=== PATIENT | male | born 1935 | race Caucasian/White ===

== ENCOUNTER 2018-04-28 03:38 | Observation (INO) | payer MEDICARE, OTHER ==
[~2018-04-28] VITALS: Ht 177.8 cm; Wt 83.6 kg
[~2018-04-28 03:38] MED LIST: ASPIRIN EC325 M1 PO; COZAAR50 MG PO; DICLOFENAC SODI50 MG PO; NATURAL VEGETA283 G1 PO; ZOCOR40 MG PO
[2018-04-28 04:00] VITALS: BP 134/62
[2018-04-28 05:01] LABS: TROPONIN-I 0.022 ng/mL (0.000-0.060)
[2018-04-28 06:00] VITALS: BP 123/90; BMI 26.4
[2018-04-28 08:31] VITALS: Ht 177.8 cm; Wt 83.6 kg
[2018-04-28 09:03] VITALS: BP 139/70
[2018-04-28 10:58] LABS: CKMB 2.1 U/L (0.0-3.6); CREATINE KINASE 82 UL (21-232)
[2018-04-28 10:59] LABS: TROPONIN-I < 0.017 ng/mL (0.000-0.060)
[2018-04-28 12:11] VITALS: BP 104/72
[2018-04-28 14:47] LABS: CKMB 1.9 U/L (0.0-3.6); CREATINE KINASE 69 UL (21-232); TROPONIN-I < 0.017 ng/mL (0.000-0.060)
== END 2018-04-28 17:37 | disposition home or self-care (01) ==
LOC: D.ER 03:38 → OBSVTIME 04:15 → D.M2 04:15
PROVIDERS: Emergency Medicine; Internal Medicine Cardiovascular Disease
DX: R00.1 Bradycardia, unspecified (principal); I25.10 Atherosclerotic heart disease of native coronary artery without angina pectoris; Z95.1 Presence of aortocoronary bypass graft; I10 Essential (primary) hypertension; E78.5 Hyperlipidemia, unspecified; Z72.0 Tobacco use; Z86.73 Personal history of transient ischemic attack (TIA), and cerebral infarction without residual deficits; G25.81 Restless legs syndrome; K21.9 Gastro-esophageal reflux disease without esophagitis

== ENCOUNTER 2018-09-24 11:48 | Inpatient (IN) | payer MEDICARE, OTHER ==
[~2018-09-24] VITALS: Ht 177.8 cm; Wt 86.8 kg
--- NOTE | ~2018-09-24 | HEMODYNAMI ---
PATIENT:CAROLINA CANELA MEDICAL RECORD: [id number] : 35 LOCATION:[address] [facility] [id number] ADMISSION DATE: 09/25/18 Generatedon:09/26/201814:26 Patient name: CAROLINA CANELA Patient #: [id number] SSN: : 1935 Date of study: 09/26/2018 Page: Of Hemodynamic Procedure Report Patient Data Patient Demographics Procedure consent was obtained First Name: CAROLINA Gender: Male Last Name: ROLA : 1935 [facility] Initial: N Age: 83 year(s) Patient #: [id number] Race: Unknown Additional ID: [id number] Contact details Address: [address] State: [place] City: [place] Zip code: [address] Past Medical History Allergies: No known allergies Admission Admission Data Admission Date: 09/25/2018 Admission Time: 13:40 Room #: D.2124 Lab Results Lab Result Date: 09/26/2018 Lab Result Time: 0:00 Biochemistry Name Units Result Min Max BUN mg/dl 17 --(---*)-- 7 18 Creatinine mg/dl 1 --(--*-)-- 0.6 1.3 CBC Name Units Result Min Max Hemoglobin g/dl 13.1 -*(----)-- 13.5 17.5 Procedure Procedure Types Cath Procedure Diagnostic Procedure PPM/ICD PPM Dual Implant Sedation Charges Moderate Sedation up to 30 minutes Procedure Description Procedure Date Procedure Date: 09/26/2018 Procedure Start Time: 13:49 Procedure End Time: 14:14 Procedure Staff Name Function Meño Garay MD Performing Physician Wilberto Almendarez MD Assisting physician Paul Suero RN Sports Centre Manager Crystal Jones RT Monitor Darin Mayes RN Nurse Sergei Barnes RT Scrub Procedure Data Cath Procedure Estimated blood loss: 10 ml Procedure Complications No complications Procedure Medications Medication Administration Route Dosage 0.9% NaCl I.V. 100 ml/hr Oxygen etCO2 Nasal cannula 2 l/min Lidocaine 1% added to field 20 Ancef (1Gm/50ml NS) I.V.P.B 1 g Ancef Irrigation Topical 1 g (1gm/500ml NS) Versed I.V. 2 mg Fentanyl I.V. 100 mcg Versed I.V. 1 mg Fentanyl I.V. 50 mcg Versed I.V. 1 mg Hemodynamics Rest Pre Cath Intra NCS Post Cath Vital Signs Time Heart Resp SPO2 etCO2 NIBP (mmHg) Rhythm Pain Sedation Rate (ipm) (%) (mmHg) Status Level (bpm) 13:41:46 61 20 99 1.4 129/64(111) NSR 0 (11) 10(A) , No pain 13:46:08 66 13 98 0 139/66(95) NSR 0 (11) 10(A) , No pain 13:50:32 53 19 98 0 123/63(82) NSR 0 (11) 10(A) , No pain 13:54:41 156 12 95 0 121/76(89) NSR 0 (11) 10(A) , No pain 13:58:56 61 10 96 0 116/70(109) NSR 0 (11) 10(A) , No pain 14:03:15 63 14 98 1.4 127/71(100) NSR 0 (11) 9(A) , No pain 14:07:33 61 13 98 0 104/61(81) NSR 0 (11) 9(A) , No pain 14:11:45 58 11 98 1.4 109/68(89) NSR 0 (11) 9(A) , No pain Medications Time Medication Route Dose Verified Delivered Reason Notes Effectiv eness by by 13:39:31 0.9% NaCl I.V. 100 Darin Darin Per ml/hr Gerber Mayes physician RN RN 13:39:41 Oxygen etCO2 2 Darin Darin Per Nasal l/min Gerber Mayes physician cannula RN RN 13:39:54 Lidocaine added 20ml Darin Darin for local 1% to vial Aureaigan Lorigan anesthetic field RN RN 13:40:06 Ancef I.V.P.B 1 g Darin Darin Per (1Gm/50ml Gerber Mayes physician NS) RN RN 13:40:24 Ancef Topical 1 g Darin Darin used for Irrigation Lorigan Lorigan procedure (1gm/500ml RN RN NS) 13:47:54 Versed I.V. 2 mg Darin Darin for Lorigan Lorigan sedation RN RN 13:48:08 Fentanyl I.V. 100 Darin Darin for mcg Lorigan Lorigan sedation RN RN 13:51:17 Versed I.V. 1 mg Darin Darin for Lorigan Lorigan sedation RN RN 13:51:25 Fentanyl I.V. 50 Darin Darin for mcg Lorigan Lorigan sedation RN RN 14:02:56 Versed I.V. 1 mg Darin Darin for Lorigan Lorigan sedation RN import/export freight forwarder Log Time Note 13:00:33 Paul Suero RN sent for patient. Start room use. 13:14:40 Time tracking: Regular hours (M-F 7:00 - 5:00) 13:14:43 Plan of Care:Hemodynamics will remain stable., Cardiac rhythm will remain stable., Comfort level will be maintained., Respiratory function will remain adequate., Patient/ family verbilizes understanding of procedure., Procedure tolerated without complication., Recovers from procedure without complications.. 13:17:08 Patient received from Med II to CCL 3 Alert and oriented. Tansferred to table in Supine position. 13:17:09 Warm blankets applied, and lashanda hugger turned on for patient comfort. 13:17:10 Correct patient and procedure confirmed by team. 13:17:11 Signed procedure consent form obtained from patient. 13:17:13 ECG and BP/O2 sat monitors applied to patient. 13:17:24 H&P Date Dictated: 09/24/2018 Within 30 days and on chart., H&P Addendum completed by physician on day of procedure. (MUST COMPLETE FOR ALL OUTPATIENTS). 13:17:26 Pre-procedure instructions explained to patient. 13:17:28 Family in waiting room. 13:17:30 Patient NPO since Breakfast. 13:21:16 Patient allergic to No known allergies 13:21:23 Is the patient allergic to Iodine/contrast media? No. 13:21:25 Was the patient premedicated? Yes 13:21: Is patient on blood thinner?No 13::31 Lab Result : Creatinine 1 mg/dl 13::31 Lab Result : BUN 17 mg/dl 13::31 Lab Result : Hemoglobin 13.1 g/dl 13:22:55 Dentures? Yes IN TIGHT 13:23:02 Opens mouth fully? Yes 13:23:03 Deviated septum? No 13:23:05 Sleep apnea? No 13:23:06 Snore? Yes 13:23:10 Previous problem with sedation/anesthesia? No ? 13:23:38 Patient diabetic? No. 13:24:05 IV patent on arrival in left forearm with 0.9% NaCl at [facility]. 13:24:06 Lab results completed and on chart. 13:24:26 Left chest area was prepped with dura-prep and draped in sterile fashion 13:24:27 Alarms reviewed by R. N. 13:24:28 Sharps counted by scrub and verified by R.N. 13:37:09 Use device set COCO PPM 13:37:34 Cautery Tip Dairy Manufacturing Technologist opened to sterile field. 13:37:36 Cautery Pushbutton Pencil opened to sterile field. 13:37:37 Mepilex Dressing (431439) opened to sterile field. 13:37:44 Immobilizer Large opened to sterile field. 13:37:50 2-0 Ticron Multipack ([id number]) opened to sterile field. 13:37:51 3-0 Vicryl Single Pack [id number] opened to sterile field. 13:37:52 5-0 Monocryl PS2 [id number] opened to sterile field. 13:38:55 Medtronic Advisa MRI PPM Dual Generator [id number] opened to sterile field. 13:38:56 Medtronic 4074-52 PPM Lead opened to sterile field. 13:38:57 Medtronic 4574-45 PPM Lead opened to sterile field. 13:39:31 0.9% NaCl 100 ml/hr I.V. was administered by Darin Mayes RN; Per physician; 13:39:41 Oxygen 2 l/min etCO2 Nasal cannula was administered by Darin Mayes RN; Per physician; 13:39:54 Lidocaine 1% 20ml vial added to field was administered by Darin Mayes RN; for local anesthetic; 13:40:06 Ancef (1Gm/50ml NS) 1 g I.V.P.B was administered by Darin Mayes RN; Per physician; 13:40:24 Ancef Irrigation (1gm/500ml NS) 1 g Topical was administered by Darin Mayes RN; used for procedure; 13:40:28 Vital chart was started 13:46:10 Physician arrived 13:46:10 --------ALL STOP TIME OUT------ 13:46:11 Final Timeout: patient, procedure, and site verified with staff and physician. All members of the team are in agreement. 13:46:17 Left chest site verified by team. 13:46:22 Physical assessment completed. ASA score P 2 - A patient with mild systemic disease as per Meño Garay MD. 13:46:27 Sedation plan: IV Moderate Sedation Medication:Versed, Fentanyl 13:47:54 Versed 2 mg I.V. was administered by Darin Mayes RN; for sedation; 13:48:08 Fentanyl 100 mcg I.V. was administered by Darin Mayes RN; for sedation; 13:49:19 Procedure started. 13:49:19 Full Disclosure recording started 13:49:44 Local anesthetic to left sublavian artery with Lidocaine 2% by Wilberto Almendarez MD.INITIAL ACCESS ONLY 13:50:04 Medtronic billing representative MANOLO Rupesh present for procedure. 13:51:17 Versed 1 mg I.V. was administered by Darin Mayes RN; for sedation; 13:51:18 Pre sharps counted by scrub and verified by RN: Sutures: 3; Sponges: 10; Stick needles: 4; Skin needles: 0; Blade: 2; Cautery: 1 13:51:25 Fentanyl 50 mcg I.V. was administered by Darin Mayes RN; for sedation; 13:51:28 Grounding pad site Left thigh. 13:51:31 Grounding pad site free from injury. 13:51:37 Incision made to left subclavicular area. 13:54:56 Generator pocket made/opened. 13:58:08 PEELAWAY 7FR Safe Sheath (SU7) opened to sterile field. 13:58:09 PEELAWAY 7FR Safe Sheath (SU7) opened to sterile field. 13:58:19 Left subclavian vein accessed with 7Fr Peel Away Sheath. 13:58:25 Ventricular lead inserted and advanced. 13:58:30 Left subclavian vein accessed with 7Fr Peel Away Sheath. 13:58:35 Atrial lead inserted and advanced. 14:00:34 Ventricular lead positioned. 14:00:41 Ventricular lead tested. 14:02:35 Atrial lead inserted and advanced. 14:02:39 Atrial lead tested. 14:02:48 Peel-a-way sheath was split and removed. 14:02:50 Peel-a-way sheath was split and removed. 14:02:56 Versed 1 mg I.V. was administered by Darin Mayes RN; for sedation; 14:04:25 PPM Dual was attached to lead(s) and inserted into pocket. 14:04:39 PPM Dual was inserted subcutaneously to left chest. 14:04:42 Device pocket was irrigated with Ancef. 14:06:54 Ventricular lead attachment was completed with 2-0 silk. 14:06:57 Atrial lead attachment was completed with 2-0 silk. 14:07:01 Generator was sutured in place with 2-0 silk. 14:07:35 Parameters-- Generator: Mode: AAIR=DDDR. Lower Rate: 60bpm. Upper Rate: 120bpm. 14:08:59 Parameters--Ventricular P/R Wave: 20.1mV. Current: .4mA; Threshold: .4V; Impedence: 1215OHMS. 14:09:32 Parameters--Atrial P/R Wave: 2.3mV. Current: .8mA; Threshold: .5V; Impedence: 541OHMS. 14:09:43 Skin closure was completed with 5-0 monocryl. 14:12:28 Procedure ended.(Physican Out) 14:12:39 Sharps counted by scrub and verified by R.N. 14:12:48 Insertion/operative site no bleeding no hematoma. 14:13:15 Post-op/insertion site Left Subclavian vein dressed using a Mepilex dressing. 14:13:17 Post Procedure Pulses reassessed and unchanged 14:13:22 Post-procedure physical assessment completed. ASA score P 2 - A patient with mild systemic disease as per Meño Garay MD. 14:13:26 Post procedure rhythm: unchanged. 14:13:30 Estimated blood loss: 10 ml 14:13:34 Post procedure instruction explained to patient.Patient verbalizes understanding. 14:13:55 Procedure type changed to Cath procedure, Diagnostic procedure, PPM/ICD, PPM Dual Implant, Sedation Charges, Moderate Sedation up to 30 minutes 14:13:57 Procedure and supply charges have been captured, reviewed, submitted and are correct. 14:14:04 Procedure Complication : No complications 14:14:06 Vital chart was stopped 14:14:07 See physician's report for complete and final results. 14:14:09 Report given to Pre/Post Procedure Room. 14:14:12 Patient transfered to Pre/Post Procedure Room with Stretcher. 14:14:14 Procedure ended. 14:14:14 Full Disclosure recording stopped 14:14:17 End room use (Document Last) Device Usage Item Name Manufacture Quantity Catalog Hospital Part Current Minimal Lot# / Number Charge Number Stock Stock Serial# Code Cautery Tip Microtek 1 [id number] 246896 573532 [id number] 5 Dairy Manufacturing Technologist [employer] Cautery Microtek 1 [id number] 097195 96384 618495 5 Pushbutton Medical Inc. Pencil Mepilex Cardinal 1 686507 979058 284479 872147 5 Dressing Health (589064) Immobilizer Cardinal 1 79-18667 810595 766389 430448 5 Large Health 2-0 Ticron Ethicon 6 [id number] 033247 34358 919424 5 Multipack ([id number]) 3-0 Vicryl Ethicon 1 [id number] 159278 547036 848507 5 Single Pack [id number] 5-0 Monocryl Ethicon 1 Y495G 142584 578272 822433 5 PS2 Y495G Medtronic Medtronic 1 A2DR01 925307 172038 776108 5 Advisa MRI [id number] PPM Dual EXP. Generator 04/12/2019 A2DR01 Medtronic Medtronic 1 4074-52 355371 185331 251451 5 4074-52 PPM [id number] Lead EXP . 04/25/2020 Medtronic Medtronic 1 4574-45 245328 490631 873490 5 4574-45 PPM [id number] Lead EXP .07/05/2018 PEELAWAY 7FR Microtek 2 SU7 942318 519843 892050 10 Safe Sheath Medical Inc. (SU7) Signature Audit Strong Stage Time Signature Unsigned Intra-Procedure 09/26/2018 Crystal Jones 2:26:34 PM RT(R) Signatures Monitor : Crystal Jones Signature : RT Date : Time : [facility] [address] [place] [address]
--- NOTE | ~2018-09-24 | OP ---
PATIENT NAME: CAROLINA CANELA MEDICAL RECORD: [id number] :35 LOCATION:D.M2 D.2124 ADMISSION DATE:09/25/18 SURGEON: JEYSON SEPULVEDA MD DATE OF OPERATION: 09/26/2018 PREOPERATIVE DIAGNOSES: 1. Sick sinus syndrome with pauses. 2. Coronary artery disease. 3. Hypertension. 4. Tobacco dependence syndrome. POSTOPERATIVE DIAGNOSES: 1. Sick sinus syndrome with pauses. 2. Coronary artery disease. 3. Hypertension. 4. Tobacco dependence syndrome. PROCEDURE: Left subclavian vein dual lead pacemaker placement with fluoroscopic interpretation. SURGEON: Jeyson Sepulveda MD CO-SURGEON: Meño Fox MD REPORT OF PROCEDURE: The patient's left chest was prepped and draped in sterile fashion. A 20 mL of 1% lidocaine with epinephrine was infused into the surrounding tissues. The needles were used to cannulate the left subclavian vein and guidewires were advanced times 2. A skin incision was made on the left superior lateral chest and a subcutaneous pouch was made over the pectoral fascia. The Fluoro was used to note that the wires were in good position in the venous system. The dilator trocar devices were placed over the wires and dilators were removed. The leads were positioned in the venous system and at this point, Dr. Fox positioned the leads appropriately in the atrium and ventricle. Once the leads were noted to be functioning appropriately, then these were sutured into place with 0 Ti-Cron. The leads were affixed to the pacemaker and the pacemaker was placed in the subcutaneous pouch and sutured to the pectoral fascia with an interrupted 0 Ti-Cron. We irrigated out the wound with normal saline and antibiotic solution. The subcutaneous tissues were reapproximated with interrupted 3-0 Vicryls and the skin was closed with running subcutaneous 5-0 Monocryl. COMPLICATIONS: None. CONDITION: Stable. ANESTHESIA: Local MAC. BLOOD LOSS: Minimal. TRANSINT:[id number] Voice Confirmation ID: [id number] DOCUMENT ID: [id number] OPERATIVE REPORT [id number] CAROLINA CANELA JEYSON SEPULVEDA MD CC: [id number] DICTATION DATE: 09/26/18 1419 CD MIXER HELPER: 09/26/182015 ADM IN [address] [place] [address]
[2018-09-24 12:40] LABS: BASOPHILS 0.5 % (0-2); EOSINOPHILS 2.6 % (0-7); HEMATOCRIT 46.6 % (42.0-54.0); HEMOGLOBIN 15.4 g/dL (13.5-17.5); IMMATURE GRANULOCYTES 0.2 % (0-5); MCH 31.9 pg (26.0-34.0); MCV 96.5 fL (80.0-100.0); MEAN PLATELET VOLUME 10.5 fL (7.4-10.4); MONOCYTES 7.2 % (2-11); NEUTROPHILS 61.5 % (40-80); PLATELET COUNT 142 10x3/uL (130-400); RBC 4.83 10x6/uL (4.20-6.10); RDW 14.2 % (11.5-14.5); WBC 6.1 10x3/uL (4.8-10.8)
[2018-09-24 12:49] LABS: APTT 28.5 SECONDS (22.8-39.4); INR 1.1 (0.85-1.17); PROTIME 13.7 SECONDS (11.6-15.0)
[2018-09-24 12:55] LABS: ALBUMIN 3.6 g/dL (3.4-5.0); ALKALINE PHOSPHATASE 130 U/L (46-116); ALT (SGPT) 26 U/L (10-68); BILIRUBIN - TOTAL 0.77 mg/dL (0.2-1.3); CALC OSMOLALITY 284 mosm/kg (275-300); CALCIUM 9.3 mg/dL (8.5-10.1); CARBON DIOXIDE 28.6 mmol/L (21.0-32.0); CHLORIDE - SERUM 106 mmol/L (98-107); GLUCOSE 99 mg/dL (74-106); POTASSIUM - SERUM 4.3 mmol/L (3.5-5.1); PROTEIN - SERUM 7.6 g/dL (6.4-8.2); SODIUM 142 mmol/L (136-145); UREA NITROGEN 19 mg/dL (7-18); eGFR NON AFRICAN AMERICAN 76 mL/min (90-120)
[2018-09-24 13:10] LABS: CKMB 1.7 U/L (0.0-3.6); CREATINE KINASE 64 UL (21-232); MAGNESIUM - SERUM 2.1 mg/dL (1.8-2.4); TROPONIN-I 0.025 ng/mL (0.000-0.060)
--- NOTE | 2018-09-24 14:00 | NUR ---
CORAL PRUITT, AT BEDSIDE UPDATING PT AND FAMILY ON POC.
--- NOTE | 2018-09-24 14:18 | NUR ---
PATIENT ASSISTED TO RESTROOM.
[2018-09-24 15:33] VITALS: BP 159/83
--- NOTE | 2018-09-24 15:33 | NUR ---
PT RESTING, VSS, DENIES PAIN
[2018-09-24 16:51] VITALS: BP 198/99
--- NOTE | 2018-09-24 17:13 | NUR ---
BP 198/93, HYDRALAZINE 10MG GIVEN, WILL MONITOR
[2018-09-24 17:14] VITALS: BP 172/98
--- NOTE | 2018-09-24 17:15 | NUR ---
DR WEISS AT BS
--- NOTE | 2018-09-24 17:20 | NUR ---
REPORT CALLED TO NATHEN MOHAMUD
[2018-09-24 17:40] LABS: CKMB 1.7 U/L (0.0-3.6); CREATINE KINASE 75 UL (21-232); TROPONIN-I 0.027 ng/mL (0.000-0.060)
[2018-09-24 17:52] VITALS: Ht 177.8 cm; Wt 86.8 kg
[2018-09-24] MEDS ORDERED: BAYER CHEWABLE81 MG PO (17:54)
[2018-09-24] MEDS ORDERED: COZAAR50 MG PO (17:55)
--- NOTE | 2018-09-24 17:58 | NUR ---
ASSESSMENT COMPLETE PT AAOX4 RESP UNLABORED SKIN W/D GAIT UNSTEADY TELEMETRY SR 76 WITH BIJEMINY PVCs DENIES ANY CHEST PAIN OR NEEDS AT THIS TIME WILL CONTINUE TO MONITOR
--- NOTE | 2018-09-24 18:32 | NUR ---
RECIEVED FROM ER. ALERT AND ORIENTED. V/S STABLE. TELEMERTY SHOWS SR WITH OCC BIJEMITY PVCS. FAMILYAT BEDSIDE
--- NOTE | 2018-09-24 19:44 | NUR ---
EVENING ROUNDS COMPLETED. REPORT RECEIVED. PT LYING IN BED WITH EYES OPEN, RR EVEN AND UNLABORED. INTRODUCED SELF TO PT. LEFT FOREARM PIV INFUSING NORMAL SALINE ORDERED. BED IN LOW POSITION. PT DENIES FURTHER NEEDS. CALL LIGHT IN REACH. WILL CTM. CPOC.
[2018-09-24 20:30] VITALS: BP 155/62
--- NOTE | 2018-09-24 21:37 | NUR ---
PT CURRENTLY SITTING UP IN BED, PROVIDED PT JESSICA. PT DENIES FURTHER NEEDS AT THIS TIME. BED IN LOW POSITION. CALL LIGHT IN REACH. WILL CTM.
[2018-09-24 22:46] LABS: CREATINE KINASE 70 UL (21-232); TROPONIN-I 0.022 ng/mL (0.000-0.060)
--- NOTE | 2018-09-24 23:33 | NUR ---
ORDERED ECG PERFORMED. PT LYING IN BED WITH EYES OPEN, RR EVEN AND UNLABORED. BED IN LOW POSITION. DENIES FURTHER NEEDS. CALL LIGHT IN REACH. WILL CTM.
--- NOTE | 2018-09-24 23:53 | NUR ---
RESTING IN BED WITH NO DISTRESS. RESPS NONLABORED. CALL LIGHT IN REACH. MONITOR AND CPOC.
[2018-09-25 00:30] VITALS: BP 148/67
--- NOTE | 2018-09-25 02:22 | NUR ---
ADMINISTERED ORDERED ANALGESIC FOR COMPLAINTS OF PAIN IN LOWER BACK, PT STATE LITO OF A 7 ON A SCALE OF 0-10. PT STATES HE HAS HAD CHRONIC BACK PAIN RESULTING FROM A NECK SURGERY HE HAD AT [facility] IN THE PAST YEAR.
[2018-09-25 04:30] VITALS: BP 149/84
[2018-09-25 07:11] LABS: BASOPHILS 0.4 % (0-2); EOSINOPHILS 3.4 % (0-7); HEMATOCRIT 41.6 % (42.0-54.0); HEMOGLOBIN 13.5 g/dL (13.5-17.5); IMMATURE GRANULOCYTES 0.2 % (0-5); LYMPHOCYTES 32.1 % (15-50); MCH 31.3 pg (26.0-34.0); MCHC 32.5 g/dL (31.0-37.0); MCV 96.3 fL (80.0-100.0); MEAN PLATELET VOLUME 10.9 fL (7.4-10.4); MONOCYTES 6.8 % (2-11); NEUTROPHILS 57.1 % (40-80); PLATELET COUNT 135 10x3/uL (130-400); RBC 4.32 10x6/uL (4.20-6.10); RDW 14.1 % (11.5-14.5)
[2018-09-25 07:25] VITALS: BP 135/83
--- NOTE | 2018-09-25 07:40 | NUR ---
ASSESSMENT COMPLETED.ALERT AND ORIENTED. DENIES ANY NEEDS. TELEMERTY SHOWS SR WITH OCC PVCS. SL TO LEFT AC.CALL LIGHT IN REACH
[2018-09-25 07:51] LABS: ALBUMIN 2.9 g/dL (3.4-5.0); ALKALINE PHOSPHATASE 99 U/L (46-116); ALT (SGPT) 19 U/L (10-68); BILIRUBIN - TOTAL 0.97 mg/dL (0.2-1.3); CALC OSMOLALITY 288 mosm/kg (275-300); CALCIUM 8.7 mg/dL (8.5-10.1); CARBON DIOXIDE 27.8 mmol/L (21.0-32.0); CHLORIDE - SERUM 109 mmol/L (98-107); CKMB 1.5 U/L (0.0-3.6); CREATINE KINASE 54 UL (21-232); GLUCOSE 91 mg/dL (74-106); POTASSIUM - SERUM 4.3 mmol/L (3.5-5.1); PROTEIN - SERUM 6.2 g/dL (6.4-8.2); SODIUM 144 mmol/L (136-145); TROPONIN-I 0.026 ng/mL (0.000-0.060); UREA NITROGEN 17 mg/dL (7-18); eGFR NON AFRICAN AMERICAN 76 mL/min (90-120)
--- NOTE | 2018-09-25 10:35 | NUR ---
RESTING QUIETLY NAD NOTED
--- NOTE | 2018-09-25 17:50 | NUR ---
UP ON SIDE OF BED. DENIES ANY NEEDS, SR UP WITH CALL LIGHT IN REACH. TELEMEERTY SHOWS SR
--- NOTE | 2018-09-25 19:53 | NUR ---
REPORT RECEIVED. EVENING ROUNDS COMPLETED. PT LYING IN BED WITH EYES OPEN, RR EVEN AND UNLABORED. NO S/S OF DISTRESS NOTED. INTRODUCED SELF TO PT. PT DENIES FURTHER NEEDS. FRIEND AT BEDSIDE. BED IN LOW POSITION. CALL LIGHT IN REACH. WILL CTM.
[2018-09-25 20:00] VITALS: BP 199/89
--- NOTE | 2018-09-25 23:33 | NUR ---
PT LYING IN BED WITH EYES OPEN, RR EVEN AND UNLABORED. ADMINISTERED ORDERED HYDRALAZINE IV FOR PT BLOOD PRESSURE OF 201/90, BLOOD PRESSURE RECHECKED AT 2339 AND NOW MEASURED AT 134/60.
[2018-09-26] VITALS: BP 125/58
--- NOTE | 2018-09-26 01:48 | NUR ---
PT WENT INTO 15 SECONDS OF 2ND DEGREE HEART BLOCK TYPE 2 ON TELEMETRY, CURRENTLY IN 2ND DEGREE BLOCK TYPE 1 WITH PVC'S OCCASIONAL BIGEMINIS WITH A RATE OF 56. STATES HE'S FEELING DIZZY. BLOOD PRESSURE 130/57, 96 PERCENT ON ROOM AIR. WILL CONTINUE TO MONITOR.
--- NOTE | 2018-09-26 03:24 | NUR ---
DR WEISS HAS BEEN NOTIFIED OF PT HEART RATE DROPPING DOWN INTO 30S WITH BIGEMINAL AND COUPLETS. WILL CTM.
[2018-09-26 04:00] VITALS: BP 114/56
--- NOTE | 2018-09-26 05:21 | NUR ---
60 BIGEMINY PER TELEMETRY. PT HAS BEEN CLOSELY MONITORED DUE TO HIS FREQUENT RHYTHM CHANGES AND PRIMARY NURSE HAS KEPT GUIDE CRUISE INFORMED OF PT STATUS AND DR WEISS WAS ALSO NOTIFIED.
[2018-09-26 06:25] LABS: BASOPHILS 0.2 % (0-2); EOSINOPHILS 3.7 % (0-7); HEMATOCRIT 39.7 % (42.0-54.0); HEMOGLOBIN 13.1 g/dL (13.5-17.5); LYMPHOCYTES 35.1 % (15-50); MCH 31.3 pg (26.0-34.0); MEAN PLATELET VOLUME 10.6 fL (7.4-10.4); MONOCYTES 9.7 % (2-11); NEUTROPHILS 51.3 % (40-80); PLATELET COUNT 132 10x3/uL (130-400); RBC 4.18 10x6/uL (4.20-6.10); RDW 14.3 % (11.5-14.5); WBC 4.9 10x3/uL (4.8-10.8)
[2018-09-26 07:07] LABS: ALBUMIN 2.9 g/dL (3.4-5.0); ALKALINE PHOSPHATASE 100 U/L (46-116); ALT (SGPT) 20 U/L (10-68); BILIRUBIN - TOTAL 1.16 mg/dL (0.2-1.3); CALC OSMOLALITY 282 mosm/kg (275-300); CALCIUM 8.7 mg/dL (8.5-10.1); CARBON DIOXIDE 24.1 mmol/L (21.0-32.0); CHLORIDE - SERUM 107 mmol/L (98-107); GLUCOSE 95 mg/dL (74-106); MAGNESIUM - SERUM 1.9 mg/dL (1.8-2.4); PROTEIN - SERUM 6.1 g/dL (6.4-8.2); SODIUM 141 mmol/L (136-145); UREA NITROGEN 18 mg/dL (7-18); eGFR NON AFRICAN AMERICAN 76 mL/min (90-120)
[2018-09-26 07:45] VITALS: BP 144/83
--- NOTE | 2018-09-26 11:06 | NUR ---
ASSESSMENT DONE. DENIES NEEDS.
[2018-09-26 11:28] VITALS: BP 146/65
--- NOTE | 2018-09-26 11:58 | NUR ---
NO NEEDS OR C/O AT THIS TIME. CALL LIGHT IN REACH. WILL MONITOR.
--- NOTE | 2018-09-26 13:23 | NUR ---
TO STAFF EDITOR PER BED
--- NOTE | 2018-09-26 13:48 | NUR ---
REFUSED SCD'S PER LELIA/ONEIDA
[2018-09-26 15:43] VITALS: BP 158/83
--- NOTE | 2018-09-26 17:16 | NUR ---
WITHOUT CHANGES OR DISTRESS NOTED AT THIS TIME. DENIES NEEDS.
--- NOTE | 2018-09-26 19:33 | NUR ---
ASSESSMENT CPMPLETE, PT A&O. RESPERATIONS EVEN ON RA. DRSG TO LEFT UPPER CHEST FROM PACEMAKER PLACEMENT DONE EARLIER TODAY, C/D/I. LEFT ARM IN SLING. PT CURRENTLY DENIES PAIN OR NEEDS, BED LOW, CL IN REACH.
[2018-09-26 20:00] VITALS: BP 174/91
[2018-09-27] VITALS: BP 145/87
[2018-09-27 00:02] VITALS: BP 136/84
[2018-09-27 04:00] VITALS: BP 120/83
--- NOTE | 2018-09-27 04:13 | NUR ---
FIELD INTERVIEWER AT BED SIDE TO OBTAIN VITALS.
[2018-09-27 06:18] LABS: BASOPHILS 0.2 % (0-2); HEMATOCRIT 40.4 % (42.0-54.0); HEMOGLOBIN 13.4 g/dL (13.5-17.5); LYMPHOCYTES 28.2 % (15-50); MCH 31.8 pg (26.0-34.0); MCHC 33.2 g/dL (31.0-37.0); MCV 95.7 fL (80.0-100.0); MEAN PLATELET VOLUME 11.2 fL (7.4-10.4); MONOCYTES 8.1 % (2-11); NEUTROPHILS 60.5 % (40-80); PLATELET COUNT 135 10x3/uL (130-400); RBC 4.22 10x6/uL (4.20-6.10); RDW 14.1 % (11.5-14.5); WBC 5.4 10x3/uL (4.8-10.8)
[2018-09-27 06:51] LABS: ANION GAP 12.7 mmol/L (8-16); BILIRUBIN - TOTAL 1.25 mg/dL (0.2-1.3); CALCIUM 8.6 mg/dL (8.5-10.1); CARBON DIOXIDE 25.3 mmol/L (21.0-32.0); CREATININE - SERUM 1.1 mg/dL (0.6-1.3); MAGNESIUM - SERUM 1.9 mg/dL (1.8-2.4); PROTEIN - SERUM 6.2 g/dL (6.4-8.2)
--- NOTE | 2018-09-27 07:50 | NUR ---
ASSESSMENT DONE. DENIES NEEDS.
[2018-09-27 08:00] VITALS: BP 146/71
[2018-09-27] MEDS ORDERED: PROTONIX40 MG PO (08:52)
--- NOTE | 2018-09-27 09:40 | NUR ---
GUIDE TOUR NEEDS VOICED. CALL LIGHT IN REACH. WILL CONT. PLAN OF CARE.
[2018-09-27 12:06] VITALS: BP 150/94
--- NOTE | 2018-09-27 13:15 | NUR ---
DC GIVEN TO PT
--- NOTE | 2018-09-27 13:24 | NUR ---
DC HOME PER PERSONAL CAR
--- NOTE | 2018-09-27 14:54 | MORECARE ---
CASE MANAGEMENT DISCHARGE SUMMARY PATIENT: CAROLINA CANELA UNIT: [id number] ADM DATE: 09/25/18 AGE: 83 : 35 SEX: M ROOM/BED: D.2123 AUTHOR: BRENDA PEMBERTON PHYSICIAN: REFERRING PHYSICIAN: MELI HAMM MD DATE OF SERVICE: 09/27/18 Discharge Plan Patient Name: CAROLINA CANELA [facility] [facility] 1935 Planned Disposition: Home Anticipated Discharge Date: 09/27/18 Discharge Date: 09/27/2018 Expected LOS: 2 Initial Reviewer: [email or web address] Initial Review Date: 09/27/2018 Generated: 09/27/18 3:53 pm Patient Name: CAROLINA CANELA Page [phone] at 0754 All edits/amendments must be made on the electronic document DICTATION DATE: 09/27/18 1453 SR. UNIX SYSTEM ADMINISTRATOR: JOSÉ MANUEL 09/27/18 1453 RPT#: [id number] DC DATE:09/27/18 STATUS: DIS IN [facility] [address] [place] [address] END OF REPORT
--- NOTE | 2018-09-27 15:04 | MORECARE ---
CASE MANAGEMENT DISCHARGE SUMMARY PATIENT: CAROLINA CANELA UNIT: [id number] ADM DATE: 09/25/18 AGE: 83 : 35 SEX: M ROOM/BED: D.2224 AUTHOR: NIECY,DOC PHYSICIAN: REFERRING PHYSICIAN: MELI HAMM MD DATE OF SERVICE: 09/27/18 Discharge Plan Patient Name: CAROLINA CANELA Facility: [facility]:[place] : 1935 Planned Disposition: Home Anticipated Discharge Date: 09/27/18 Discharge Date: 09/27/2018 Expected LOS: 2 Initial Reviewer: [email or web address] Initial Review Date: 09/27/2018 Generated: 09/27/18 4:03 pm Comments DCP- Discharge Planning Updated by [email or web address]: Arslan Quintana on 09/27/18 1:[address] Patient Name: CAROLINA CANELA Admission Status: ER Accout number: [id number] Admission Date: 09-25-2018 : 1935 Admission Diagnosis: Attending: HANSEL, Current LOS: 2 Anticipated DC Date: 09-27-2018 Planned Disposition: Home Primary Insurance: MEDICARE A & B Discharge Planning Comments: CM MET WITH PT AND SPOUSE IN ROOM TO DISCUSS DISCHARGE PLANNING AND NEEDS. CAROLINA CANELA provided verbal consent to discuss current and ongoing needs with/in the presence of: SPOUSE, JUSTYNA HAMILTON. PT REPORTS LIVING AT HOME INDEPENDENTLY WITH SPOUSE. PT HAS A CANE AND HOSPITAL BED THAT HE DOES NOT USE AND HAS NO MEDICAL EQUIPMENT PROVIDER PREFERENCE. PT HAS NO OUTSIDE SERVICES ASSISTING IN THE HOME. CM DISCUSSED AVAILABILITY OF HOME HEALTH, REHAB SERVICES AND MEDICAL EQUIPMENT. PT DENIES DISCHARGE NEEDS, REPORTS HIS SPOUSE IS HERE TO TRANSPORT HOME TODAY FOR DISCHARGE. COUNTRY PRINTER APPRENTICE NURSE NOTIFIED. Heavy Coil Winder: Arslan Quintana DCPIA - Discharge Planning Initial Assessment Updated by [email or web address]: Arslan Quintana on 09/27/18 2:55 pm * Is the patient Alert and Oriented? Yes * How many steps to enter\exit or inside your home? * PCP DR. MEJIAS IN [place] * Pharmacy [place] MAIL ORDER * Preadmission Environment Home with Family * ADLs Independent * Equipment [facility] * Other Equipment NO MEDICAL EQUIPMENT PROVIDER PREFERENCE * List name and contact numbers for known caregivers / representatives who currently or will assist patient after discharge: JUSTYNA CANELA, SPOUSE, * Verbal permission to speak to the caregivers and representatives has been obtained from the patient. Yes * Community resources currently utilized None * Please name any agencies selected above. NONE * Additional services required to return to the preadmission environment? No * Can the patient safely return to the preadmission environment? Yes * Has this patient been hospitalized within the prior 30 days at any hospital? No Patient Name: CAROLINA CANELA Page 61915 at 1504 All edits/amendments must be made on the electronic document DICTATION DATE: 09/27/18 1503 BUSINESS SOLUTION ANALYST: JOSÉ MANUEL 09/27/18 1503 RPT#: [id number] OR DATE:09/27/18 STATUS: DIS IN [facility] [address] [place] [address] END OF REPORT
--- NOTE | 2018-10-01 12:54 | OP ---
PATIENT NAME: CAROLINA CANELA MEDICAL RECORD: [id number] :35 LOCATION:D.M2 D.2124 ADMISSION DATE:09/25/18 SURGEON: COLLEEN RITTER MD DATE OF OPERATION: 09/26/2018 PROCEDURE: Lead portion of permanent pacemaker placement. INDICATION: AV block, Mobitz I and II. SURGEON: Wilberto Almendarez MD DESCRIPTION OF PROCEDURE: After left subclavian was cannulated via the modified Seldinger technique via Dr. Almendarez, first under fluoroscopic guidance, I placed RV lead in RV apex without difficulty. After adequate thresholds were obtained, I then placed right atrial lead in the right atrial appendage without difficulty. After P waves and thresholds were obtained, leads were attached to appropriate poles of the generator and the pocket was closed via Dr. Almendarez. IMPRESSION: Successful lead portion permanent pacemaker placement. ESTIMATED BLOOD LOSS: Minimal. DISPOSITION: To the floor, stable. COMPLICATIONS: None. TRANSINT:[id number] Voice Confirmation ID: [id number] DOCUMENT ID: [id number] COLLEEN RITTER MD at 1254 CC: [id number] DICTATION DATE: 09/26/18 1416 PLASTIC SURGERY COORDINATOR: 09/26/182009 DIS IN 09/27/18 [id number] [place] [address]
== END 2018-09-27 13:24 | disposition home or self-care (01) | DRG 243 ==
LOC: D.ER 11:48 → D.EDHOLD 16:44 → OBSVTIME 16:45 → D.M2 17:21
PROVIDERS: Family Medicine; Internal Medicine Interventional Cardiology; ADMIT Family Medicine
PROC: 02H63JZ Insertion of Pacemaker Lead into Right Atrium, Percutaneous Approach (ICD-10-PCS; 2018-09-26)
PROC: 02HK3JZ Insertion of Pacemaker Lead into Right Ventricle, Percutaneous Approach (ICD-10-PCS; 2018-09-26)
PROC: 0JH606Z Insertion of Pacemaker, Dual Chamber into Chest Subcutaneous Tissue and Fascia, Open Approach (ICD-10-PCS; principal; 2018-09-26 13:00)
DX: I49.5 Sick sinus syndrome (principal); F17.213 Nicotine dependence, cigarettes, with withdrawal; I25.10 Atherosclerotic heart disease of native coronary artery without angina pectoris; I10 Essential (primary) hypertension; R55 Syncope and collapse; R00.8 Other abnormalities of heart beat; G25.81 Restless legs syndrome; D75.1 Secondary polycythemia; K21.9 Gastro-esophageal reflux disease without esophagitis; M19.90 Unspecified osteoarthritis, unspecified site; Z86.73 Personal history of transient ischemic attack (TIA), and cerebral infarction without residual deficits

== ENCOUNTER 2018-10-11 10:20 | Outpatient (CLI) | payer MEDICARE, OTHER ==
[~2018-10-11] VITALS: Ht 177.8 cm; Wt 86.8 kg
--- NOTE | ~2018-10-11 | HEMODYNAMI ---
PATIENT:CAROLINA CANELA MEDICAL RECORD: [id number] : 35 LOCATION:D.CAT ADMISSION DATE: 10/11/18 Generatedon:10/11/201815:44 Patient name: CAROLINA CANELA Patient #: [id number] SSN: : 1935 Date of study: 10/11/2018 Page: Of Hemodynamic Procedure Report Patient Data Patient Demographics Procedure consent was obtained First Name: CAROLINA Gender: Male Last Name: ROLA : 1935 [facility] Initial: N Age: 83 year(s) Patient #: [id number] Race: Unknown Additional ID: [id number] Contact details Address: [address] State: [place] City: [place] Zip code: [address] Past Medical History Allergies: No known allergies Admission Admission Data Admission Date: 10/11/2018 Admission Time: 10:20 Procedure Procedure Types Cath Procedure Diagnostic Procedure PPM/ICD Lead Removal Dual Procedure Description Procedure Date Procedure Date: 10/11/2018 Procedure Start Time: 15:05 Procedure End Time: 15:43 Procedure Staff Name Function Meño Garay MD Performing Physician Wilberto Almendarez MD Assisting physician Sergei Barnes RT Monitor Juan Zimmer RN Nurse Crystal Jones RT Scrub Procedure Data Cath Procedure Fluoroscopy Diagnostic fluoroscopy Total fluoroscopy Time: 4 time: 4 min min Diagnostic fluoroscopy Total fluoroscopy dose: 134 dose: 134 mGy mGy Contrast Material Contrast Material Type Amount (ml) Isovue 300 0 Estimated blood loss: 0 ml Procedure Complications No complications Procedure Medications Medication Administration Route Dosage Oxygen etCO2 Nasal cannula 2 l/min Lidocaine 1% added to field 20 Ancef (1Gm/50ml NS) I.V.P.B 1 g Ancef Irrigation Topical 1 g (1gm/500ml NS) Versed I.V. 1 mg Fentanyl I.V. 50 mcg Versed I.V. 1 mg Fentanyl I.V. 50 mcg Versed I.V. 1 mg Fentanyl I.V. 50 mcg Versed I.V. 1 mg Fentanyl I.V. 50 mcg Fentanyl I.V. 50 mcg Fentanyl I.V. 50 mcg Hemodynamics Rest Heart Rate: 57 (bpm) Snapshots Pre Cath Intra NCS Post Cath Vital Signs Time Heart Resp SPO2 etCO2 NIBP (mmHg) Rhythm Pain Sedation Rate (ipm) (%) (mmHg) Status Level (bpm) 14:51:39 86 15 99 0 164/119(137) Paced 0 (11) 10(A) , No pain 14:56:48 76 15 96 0 146/87(118) Paced 0 (11) 10(A) , No pain 15:01:04 44 14 97 0 121/96(107) SB 0 (11) 10(A) , No pain 15:05:25 35 15 95 0 130/63(84) SB 0 (11) 9(A) , No pain 15:09:53 58 15 93 0 124/51(86) SB 0 (11) 9(A) , No pain 15:14:13 71 17 95 0 112/59(87) SB 0 (11) 9(A) , No pain 15:18:29 47 18 95 0 111/63(92) SB 0 (11) 9(A) , No pain 15:23:42 55 15 95 0 105/59(90) SB 0 (11) 9(A) , No pain 15:28:01 50 16 97 0 118/50(99) SB 0 (11) 9(A) , No pain 15:33:00 89 7 98 0 122/93(117) SB 0 (11) 10(A) , No pain 15:37:59 84 20 97 0 Measuring SB 0 (11) 10(A) , No pain 15:38:11 83 17 98 0 121/93(111) SB 0 (11) 10(A) , No pain 15:43:10 87 7 100 0 Measuring SB 0 (11) 10(A) , No pain 15:43:30 115 10 99 0 132/91(108) SB 0 (11) 10(A) , No pain Medications Time Medication Route Dose Verified Delivered Reason Notes Effectiv eness by by 14:56:58 Oxygen etCO2 2 Meño Martinez used for Nasal l/min St Ronaldo Zimmer RN procedure cannula 14:57:06 Lidocaine added 20ml Meño Ladd for local 1% to vial St Ronaldo Almendarez MD anesthetic field 14:57:17 Ancef I.V.P.B 1 g Meño Buffie used for (1Gm/50ml Tanisha Zimmer brush hand NS) 14:57:23 Ancef Topical 1 g Meño Buffie used for Irrigation Tanisha Zimmer brush hand (1gm/500ml NS) 14:59:28 Versed I.V. 1 mg Meño Buffie for Tanisha Zimmer RN sedation 14:59:34 Fentanyl I.V. 50 Meño Buffie for mcg Tanisha Zimmer RN sedation 15:02:09 Versed I.V. 1 mg Meño Buffie for Tanisha Zimmer RN sedation 15:02:13 Fentanyl I.V. 50 Meño Buffie for mcg Tanisha Zimmer RN sedation 15:04:58 Versed I.V. 1 mg Meño Buffie for Tanisha Zimmer RN sedation 15:05:02 Fentanyl I.V. 50 Meño Buffie for mcg Tanisha Zimmer RN sedation 15:11:48 Versed I.V. 1 mg Meño Buffie for Tanisha Zimmer RN sedation 15:11:52 Fentanyl I.V. 50 Meño Buffie for mcg Tanisha Zimmer RN sedation 15:29:28 Fentanyl I.V. 50 Meño Buffie for mcg Tanisha Zimmer RN sedation 15:32:07 Fentanyl I.V. 50 Meño Buffie for mcg Tanisha Zimmer RN sedation Procedure Log Time Note 14:20:31 Sergei Barnes RT(R) sent for patient. Start room use. 14:31:31 Time tracking: Regular hours (M-F 7:00 - 5:00) 14:31:35 Plan of Care:Hemodynamics will remain stable., Cardiac rhythm will remain stable., Comfort level will be maintained., Respiratory function will remain adequate., Patient/ family verbilizes understanding of procedure., Procedure tolerated without complication., Recovers from procedure without complications.. 14:42:47 Patient received from Pre/Post Procedure Room to [facility] 3 Alert and oriented. Tansferred to table in Supine position. 14:42:49 Warm blankets applied, and lashanda hugger turned on for patient comfort. 14:42:49 Correct patient and procedure confirmed by team. 14:42:51 Signed procedure consent form obtained from patient. 14:42:53 ECG and BP/O2 sat monitors applied to patient. 14:43:09 H&P Date Dictated: 10/03/2018 Within 30 days and on chart., H&P Addendum completed by physician on day of procedure. (MUST COMPLETE FOR ALL OUTPATIENTS). 14:43:10 Pre-procedure instructions explained to patient. 14:43:12 Family in waiting room. 14:43:15 Patient NPO since Midnight. 14:43:22 Patient allergic to No known allergies 14:49:30 Vital chart was started 14:49:33 Baseline sample Acquired. 14:49:37 Rhythm: sinus bradycardia 14:49:37 Full Disclosure recording started 14:49:40 Pre-op teaching completed and patient verbalized understanding. 14:49:45 Is the patient allergic to Iodine/contrast media? No. 14:49:46 Is patient on blood thinner?No 14:49:48 Patient diabetic? No. 14:49:53 Snore? Yes 14:49:54 Sleep apnea? No 14:49:55 Deviated septum? No 14:49:55 Opens mouth fully? Yes 14:49:56 Sticks out tongue? Yes 14:49:58 Airway obstruction? No ? 14:50:00 Dentures? No ? 14:50:05 IV patent on arrival in left forearm with 0.9% NaCl at [facility]. 14:50:07 Lab results completed and on chart. 14:50:14 Left chest area was prepped with dura-prep and draped in sterile fashion 14:50:15 Alarms reviewed by R. N. 14:50:16 Sharps counted by scrub and verified by R.N. 14:50:30 [employer]onic sales representative uniforms MANOLO MOREAU present for procedure. 14:50:43 Pre sharps counted by scrub and verified by RN: Sutures: 7; Sponges: 5; Stick needles: 0; Skin needles: 2; Blade: 1; Cautery: 1 14:50:46 Grounding pad site Left thigh. 14:50:48 Grounding pad site free from injury. 14:54:32 Use device set COCO PPM 14:54:34 Mepilex Dressing ([id number]) opened to sterile field. 14:54:35 Cautery Pushbutton Pencil opened to sterile field. 14:54:36 Cautery Tip Player Development Manager opened to sterile field. 14:54:37 5-0 Monocryl PS2 [id number] opened to sterile field. 14:54:38 3-0 Vicryl Single Pack [id number] opened to sterile field. 14:54:38 2-0 Ticron Multipack ([id number]) opened to sterile field. 14:54:45 Immobilizer Large opened to sterile field. 14:56:58 Oxygen 2 l/min etCO2 Nasal cannula was administered by Juan Zimmer RN; used for procedure; 14:57:06 Lidocaine 1% 20ml vial added to field was administered by Wilberto Almendarez MD; for local anesthetic; 14:57:17 Ancef (1Gm/50ml NS) 1 g I.V.P.B was administered by Juan Zimmer RN; used for procedure; 14:57:23 Ancef Irrigation (1gm/500ml NS) 1 g Topical was administered by Juan Zimmer RN; used for procedure; 14:58:28 --------ALL STOP TIME OUT------ 14:58:28 Final Timeout: patient, procedure, and site verified with staff and physician. All members of the team are in agreement. 14:58:31 Left chest site verified by team. 14:58:43 Fire Safety Assessment: A--An alcohol-based skin anteseptic being used preoperatively., B--The operative or invasive procedure is being performed above the xiphoid process or in the oropharynx., C--Open oxygen or nitrous oxide is being used., E--There are other possible contributors. 14:58:47 Physical assessment completed. ASA score P 2 - A patient with mild systemic disease as per Wilberto Almendarez MD. 14:58:54 Sedation plan: IV Moderate Sedation Medication:Versed, Fentanyl 14:59:28 Versed 1 mg I.V. was administered by Juan Zimmer RN; for sedation; 14:59:34 Fentanyl 50 mcg I.V. was administered by Juan Zimmer RN; for sedation; 15:02:09 Versed 1 mg I.V. was administered by Juan Zimmer RN; for sedation; 15:02:13 Fentanyl 50 mcg I.V. was administered by Juan Zimmer RN; for sedation; 15:04:58 Versed 1 mg I.V. was administered by Juan Zimmer RN; for sedation; 15:05:02 Fentanyl 50 mcg I.V. was administered by Juan Zimmer RN; for sedation; 15:05:11 Procedure started. 15:05:19 Lidocaine 2% was administered to left subclavicular area by Wilberto Almendarez MD . 15:07:49 Incision made to left subclavicular area. 15:10:03 Generator pocket made/opened. 15:11:40 PPM Dual was removed.. 15:11:48 Versed 1 mg I.V. was administered by Juan Zimmer RN; for sedation; 15:11:52 Fentanyl 50 mcg I.V. was administered by Juan Zimmer RN; for sedation; 15:12:18 PPM Dual was removed from pocket and disconnected from leads. 15:12:54 Ventricular lead tested. 15:12:57 Atrial lead tested. 15:21:57 Atrial lead repositioned. 15:29:28 Fentanyl 50 mcg I.V. was administered by Juan Zimmer RN; for sedation; 15:30:05 Atrial lead tested. 15:30:34 Ventricular lead repositioned. 15:30:44 Atrial lead tested. 15:31:14 Ventricular lead attachment was completed with 2-0 ticron. 15:31:19 Atrial lead attachment was completed with 2-0 ticron. 15:32:07 Fentanyl 50 mcg I.V. was administered by Juan Zimmer RN; for sedation; 15:35:48 PPM Dual was attached to lead(s) and inserted into pocket. 15:36:40 Generator was sutured in place with 2-0 ticron. 15:36:44 Device pocket was irrigated with Ancef. 15:37:36 Subcutaneous closure was completed with 3-0 vicryl. 15:38:18 Parameters--Ventricular P/R Wave: 6.8mV. Current: 25mA; Threshold: 0.6V; Impedence: 878OHMS. 15:39:22 Parameters--Atrial P/R Wave: 1mV. Current: 0.5mA; Threshold: 1V; Impedence: 475OHMS. 15:39:31 Skin closure was completed with 5-0 monocryl. 15:39:38 Lt Chest incision was dressed with Mepilex dressing. 15:39:51 Procedure ended.(Physican Out) 15:40:10 Fluoroscopy time 04.00 minutes. 15:40:15 Fluoroscopy dose: 134 mGy 15:40:15 Flurop Dose total: 134 15:40:20 Contrast amount:Isovue 300 0ml. 15:40:24 Sharps counted by scrub and verified by R.N. 15:40:49 Post sharps counted by scrub and verified by RN: Sutures: 7; Sponges: 5; Stick needles: 0; Skin needles: 2; Blade: 1; Cautery: 1 15:40:55 Insertion/operative site no bleeding no hematoma. 15:41:05 Post-op/insertion site Left Subclavian vein dressed using a Mepilex dressing. 15:41:10 Post Procedure Pulses reassessed and unchanged 15:41:13 Post-procedure physical assessment completed. ASA score P 2 - A patient with mild systemic disease as per Wilberto Almendarez MD. 15:41:19 Post procedure rhythm: paced 15:41:22 Estimated blood loss: 0 ml 15:41:23 Post procedure instruction explained to patient.Patient verbalizes understanding. 15:41:24 Patient needs reinforcement of post procedure teaching. 15:41:32 Procedure and supply charges have been captured, reviewed, submitted and are correct. 15:41:35 Procedure Complication : No complications 15:43:17 Vital chart was stopped 15:43:17 See physician's report for complete and final results. 15:43:19 Report given to Pre/Post Procedure Room. 15:43:22 Patient transfered to Pre/Post Procedure Room with Stretcher. 15:43:24 Procedure ended. 15:43:24 Full Disclosure recording stopped 15:43:37 End room use (Document Last) Device Usage Item Name Manufacture Quantity Catalog Hospital Part Current Minimal Lot# / Number Charge Number Stock Stock Serial# Code Mepilex Cardinal 1 [id number] [id number] 5 [facility] ([id number]) Cautery Microtek 1 [id number] 15612 310962 5 [employer] Pencil Cautery Tip Microtek 1 [id number] [id number] 021510 5 [employer] 5-0 Monocryl Ethicon 1 [id number] 259234 147134 414495 5 PS2 Y495G 3-0 Vicryl Ethicon 1 [id number] 179395 059454 653765 5 Single Pack [id number] 2-0 Ticron Ethicon 8 [id number] 879569 91696 160547 5 Multipack ([id number]) Immobilizer Cardinal 1 [id number] 867156 325506 5 Large Health Signature Audit Meally Stage Time Signature Unsigned Intra-Procedure 10/11/2018 Sergei Barnes 3:44:19 PM RT(R) Signatures Monitor : Sergei Barnes RT Signature : Date : Time : [place] [id number] [facility] [place], [facility]901
[~2018-10-11 10:20] MED LIST changes: +BAYER CHEWABLE81 MG PO; +PROTONIX40 MG PO
[2018-10-11] MEDS ORDERED: ASPIRIN325 MG PO (10:53)
[2018-10-11 11:03] VITALS: BP 167/84; Ht 177.8 cm; Wt 86.8 kg
[2018-10-11 11:27] LABS: BASOPHILS 0.2 % (0-2); EOSINOPHILS 1.5 % (0-7); HEMATOCRIT 47.3 % (42.0-54.0); HEMOGLOBIN 15.9 g/dL (13.5-17.5); IMMATURE GRANULOCYTES 0.2 % (0-5); LYMPHOCYTES 24.8 % (15-50); MCH 32.3 pg (26.0-34.0); MCHC 33.6 g/dL (31.0-37.0); MCV 95.9 fL (80.0-100.0); MEAN PLATELET VOLUME 10.2 fL (7.4-10.4); MONOCYTES 5.5 % (2-11); NEUTROPHILS 67.8 % (40-80); PLATELET COUNT 159 10x3/uL (130-400); RBC 4.93 10x6/uL (4.20-6.10); WBC 6.5 10x3/uL (4.8-10.8)
[2018-10-11 11:38] LABS: ANION GAP 15.2 mmol/L (8-16); CALCIUM 9.4 mg/dL (8.5-10.1); CARBON DIOXIDE 25.1 mmol/L (21.0-32.0); CREATININE - SERUM 1.1 mg/dL (0.6-1.3); POTASSIUM - SERUM 4.3 mmol/L (3.5-5.1)
--- NOTE | 2018-10-11 16:20 | NUR ---
PATIENT AWAKE, SITTING UP IN BED. VSS ON ROOM AIR. NO C/O PAIN, NUMBNESS, OR TINGLING. EATING SANDWICH, DRINKING JUICE WITH NO N/V.
--- NOTE | 2018-10-11 16:35 | NUR ---
PATIENT AWAKE, VSS ON ROOM AIR. LEFT ARM IN IMMOBILIZER SLING. NO C/O PAIN, NUMBNESS, OR TINGLING.
--- NOTE | 2018-10-11 16:50 | NUR ---
PATIENT AWAKE, VSS ON ROOM AIR. NO C/O PAIN. NO N/V.
--- NOTE | 2018-10-11 17:20 | NUR ---
PATIENT VOIDED WITHOUT ANY DIFFICULTIES. VSS ON ROOM AIR. IV REMOVED.
--- NOTE | 2018-10-11 17:50 | NUR ---
DISCHARGE INSTRUCTIONS GIVEN TO PATIENT AND SON REGARDING DISCHARGE INSTRUCTIONS, ALL QUESTIONS ANSWERED. PATIENT TRANSPORTED VIA WHEELCHAIR TO CAR WITH SON DRIVING, ALL BELONGINGS SENT WITH PATIENT, IMMOBILIZER SLING IN PLACE ON LEFT ARM.
--- NOTE | 2018-10-13 09:01 | OP ---
PATIENT NAME: CAROLINA CANELA MEDICAL RECORD: [id number] :35 LOCATION:D.CAT ADMISSION DATE: SURGEON: COLLEEN RITTER MD DATE OF OPERATION: 10/11/2018 PROCEDURE: Lead revision of atrial and ventricular leads. INDICATION: Migration of atrioventricular leads, thought secondary to patient noncompliance with previous activity limitations. DESCRIPTION OF PROCEDURE: Previous pocket was opened via Dr. Almendarez. Under fluoroscopic guidance, I repositioned the right atrial lead in the right atrial appendage. This had migrated proximally. After adequate P waves and thresholds were obtained, then I simply extended the right ventricular lead back in the RV apex. Excellent R waves and thresholds were obtained again. The leads were attached to appropriate poles of the generator and the pocket was reclosed via Dr. Almendarez. IMPRESSION: Successful revision of atrial and ventricular leads. At this point in time, we will place him in shoulder immobilizer for at least a 2-week period to hopefully help with compliance. TRANSINT:[id number] Voice Confirmation ID: [id number] DOCUMENT ID: [id number] COLLEEN RITTER MD at 0901 CC: [id number] DICTATION DATE: 10/11/18 1604 ECONOMIC HISTORY TEACHER: 10/11/18 1642 DEP CLI 10/11/18 [place] [address] [place] [address]
--- NOTE | 2018-10-27 09:41 | OP ---
PATIENT NAME: CAROLINA CANELA MEDICAL RECORD: [id number] :35 LOCATION:D.CAT ADMISSION DATE: SURGEON: WILBERTO SEPULVEDA MD DATE OF OPERATION: 10/11/2018 PREOPERATIVE DIAGNOSES: 1. Malfunctioning ventricular pacemaker lead. 2. Sick sinus syndrome with pauses. 3. Coronary artery disease. 4. Hypertension. 5. Tobacco dependence syndrome. POSTOPERATIVE DIAGNOSES: 1. Malfunctioning ventricular pacemaker lead. 2. Sick sinus syndrome with pauses. 3. Coronary artery disease. 4. Hypertension. 5. Tobacco dependence syndrome. PROCEDURE: Left subclavian vein dual pacemaker lead revision with fluoroscopic interpretation. SURGEON: Wilberto Sepulveda MD CO-SURGEON: Meño Fox MD REPORT OF OPERATION: The patient's left chest was prepped and draped in sterile fashion. A 15 mL of 1% lidocaine with epinephrine was infused into the surrounding tissues. The skin incision was reopened. Electrocautery was used to dissect through the subcutaneous tissues. We entered a pocket where the pacemaker was present. The suture holding it in place was removed and the pacemaker was eviscerated from the wound. This was detached from the leads. Inspection of the leads showed that they were not functioning appropriately. At this point, Dr. Fox repositioned the 2 leads until they were functioning appropriately. Once this was done, the leads were placed back on the pacemaker. The pacemaker was placed back into the subcutaneous pouch. The subcutaneous tissues were irrigated out and then reapproximated with interrupted 3-0 Vicryl. The skin was closed with running subcutaneous 5-0 Monocryl. COMPLICATIONS: None. CONDITION: Stable. ANESTHESIA: Local MAC. BLOOD LOSS: Minimal. TRANSINT:[id number] Voice Confirmation ID: [id number] DOCUMENT ID: [id number] OPERATIVE REPORT [id number] PATRICK CANELANE Gomez WILBERTO SEPULVEDA MD at 0941 CC: [id number] DICTATION DATE: 10/11/18 1546 COLLARETTE SEPARATOR: 10/11/18 1559 DEP CLI 10/11/18 [place] [address]
== END 2018-10-11 17:50 ==
LOC: D.CATH 10:20
PROVIDERS: Internal Medicine Interventional Cardiology
DX: T82.118A Breakdown (mechanical) of other cardiac electronic device, initial encounter (principal); I49.5 Sick sinus syndrome; I25.10 Atherosclerotic heart disease of native coronary artery without angina pectoris; F17.200 Nicotine dependence, unspecified, uncomplicated; I10 Essential (primary) hypertension; Z01.812 Encounter for preprocedural laboratory examination

== ENCOUNTER → 2020-01-05 09:09 | Outpatient (CLI) | payer MEDICARE, OTHER ==
[2018-10-11 11:03] VITALS: BMI 27.4
--- NOTE | ~2020-01-05 | EC ---
PATIENT:CAROLINA CANELA DATE OF SERVICE: 01/05/20 SEX: M MEDICAL RECORD: [id number] DATE OF : 35 LOCATION:[facility] AGE OF PATIENT: 84 ADMISSION DATE: 01/05/20 REFERRING PHYSICIAN: INTERPRETING PHYSICIAN: COLLEEN RITTER MD ECHOCARDIOGRAM REPORT ECHO CHARGES 4 ECHO COMPLETE Date: 01/05/20 CLINICAL DIAGNOSIS: BIGEMINY/PLEURATIC CP H/O HTN/PACEMAKER PLACEMENT ECHOCARDIOGRAPHIC MEASUREMENTS (adult normal given) AC root (d.<3.7cm) 3.7 cm LV Septum d (<1.2 cm> 1.4 cm Valve Excursion 1.9 cm LV Septum (systole) 1.8 cm Left Atria (s.<4.0cm> 3.9 cm LVPW d(<1.2cm) 1.2 cm RV (d.<2.3cm) 2.6 cm LVPW (sytole) 2.0 cm LV diastole(<5.6CM) 6.5 cm MV E-F(>70mm/sec) cm LV systole 4.8 cm LVOT Diameter 2.1 cm MV exc.(>10mm) cm Est.ejection fraction (50-75%) % DOPPLER: LVIT cm/sec A 45.0 cm/sec E 65.0 cm/sec LA cm/sec RVSP 33.2 mmHg LVOT 105 cm/sec AOP1/2T m/s Asc. Ao 137 cm/sec RVOT 55.0 cm/sec RA cm/sec PA cm/sec AV Gradient Peak 7.5 mmHg AV Mean 3.7 mmHg AV Area 2.6 cm MV Gradient Peak 2.7 mmHg MV Mean 0.84 mmHg MV Area cm COMMENTS: OP - HC Service Superintendent: 1 ILIA LIZZETH Radiology Interventional Physician: 3 Dr. Fox TAPE# PACS Pericardial Effusion N DATE OF SERVICE: Adequate 2D, color flow imaging, spectral Doppler, and M-Mode. LVH is present. LV internal dimensions dilated. LV is globally hypokinetic with reduced EF, estimated EF 30% to 35%. Aortic valve is sclerosed without evidence of stenosis by Doppler interrogation. Left atrium is normal at 3.9 cm. Mitral valve shows no prolapse. Trace MR. Right-sided chambers are grossly normal. Trace TR. ECHOCARDIOGRAM REPORT [id number] CAROLINA CANELA TRANSINT:[id number] Voice Confirmation ID: [id number] DOCUMENT ID: [id number] COLLEEN RITTER MD CC: [id number] DICTATION DATE: 01/08/20 111 MANAGER SOCIAL MEDIA: 01/08/20 1257 DEP CLI 01/05/20 [place] [id number] [place] [address]
[~2020-01-05 09:09] MED LIST changes: +ASPIRIN325 MG PO
== END | disposition home or self-care (01) ==
LOC: D.HCCECHO 09:09
PROVIDERS: ATTEND Internal Medicine Interventional Cardiology
DX: R06.00 Dyspnea, unspecified (principal)

== ENCOUNTER 2020-01-18 00:08 | Inpatient (IN) | payer MEDICARE, OTHER ==
[~2020-01-18] VITALS: Ht 177.8 cm; Wt 87.3 kg
[2020-01-18 00:50] LABS: CALC OSMOLALITY 280 mosm/kg (275-300); CARBON DIOXIDE 27.7 mmol/L (21.0-32.0); CHLORIDE - SERUM 103 mmol/L (98-107); CREATININE - SERUM 1.3 mg/dL (0.6-1.3); GLUCOSE 109 mg/dL (74-106); POTASSIUM - SERUM 3.3 mmol/L (3.5-5.1); SODIUM 138 mmol/L (136-145); UREA NITROGEN 23 mg/dL (7-18); eGFR NON AFRICAN AMERICAN 56 mL/min (90-120)
[2020-01-18 00:53] LABS: APTT 29.5 SECONDS (22.8-39.4); INR 1.02 (0.85-1.17); PROTIME 13.4 SECONDS (11.6-15.0)
[2020-01-18 00:57] LABS: BASOPHILS 0.2 % (0-2); HEMATOCRIT 45.8 % (42.0-54.0); HEMOGLOBIN 14.1 g/dL (13.5-17.5); IMMATURE GRANULOCYTES 0.1 % (0-5); LYMPHOCYTES 18.4 % (15-50); MCH 26.3 pg (26.0-34.0); MCHC 30.8 g/dL (31.0-37.0); MCV 85.4 fL (80.0-100.0); MEAN PLATELET VOLUME 10.9 fL (7.4-10.4); MONOCYTES 8.3 % (2-11); PLATELET COUNT 146 10x3/uL (130-400); RBC 5.36 10x6/uL (4.20-6.10); RDW 15.7 % (11.5-14.5); WBC 8.6 10x3/uL (4.8-10.8)
[2020-01-18 01:06] VITALS: BP 171/106
[2020-01-18 01:09] LABS: ALBUMIN 3.3 g/dL (3.4-5.0); ALKALINE PHOSPHATASE 113 U/L (30-120); ALT (SGPT) 16 U/L (10-68); BILIRUBIN - TOTAL 1.28 mg/dL (0.2-1.3); C-REACTIVE PROTEIN 7.2 mg/dL (0.0-0.9); CKMB 0.9 U/L (0.0-3.6); CREATINE KINASE 88 UL (21-232); FERRITIN 38 ng/mL (3-244); PRO BNP 6668 pg/mL (0-450); PROTEIN - SERUM 7.3 g/dL (6.4-8.2); TROPONIN-I 0.035 ng/mL (0.000-0.060)
[2020-01-18 01:11] LABS: D-DIMER-QUANTITATIVE 2.06 ug/mLFEU (0.20-0.54)
[2020-01-18] MEDS ORDERED: LASIX40 MG PO (01:12)
--- NOTE | 2020-01-18 01:50 | NUR ---
PER EDP VERBAL ORDER, PT GIVEN PUDDING CUP, APPLESAUCE AND ICE WATER. PT SITTING ON SIDE OF BED, RESPIRATIONS APPEAR EVEN AND UNLABORED. DENIES FURTHER NEEDS. WILL CONTINUE TO MONITOR.
[2020-01-18 02:03] VITALS: BP 180/95
[2020-01-18 02:57] VITALS: BP 160/95; BMI 27.6
[2020-01-18 08:35] VITALS: BP 169/99
[2020-01-18 09:15] LABS: CKMB 1.5 U/L (0.0-3.6); CREATINE KINASE 122 UL (21-232); TROPONIN-I 0.026 ng/mL (0.000-0.060)
[2020-01-18 12:54] VITALS: BP 163/105
[2020-01-18 14:05] VITALS: Ht 177.8 cm; Wt 87.3 kg
[2020-01-18 14:34] LABS: CKMB 1.9 U/L (0.0-3.6); CREATINE KINASE 92 UL (21-232); TROPONIN-I 0.024 ng/mL (0.000-0.060)
--- NOTE | 2020-01-18 19:30 | NUR ---
PT LYING IN BED AWAKE ALERT AND ORIENTED x4. NO SIGNS OF DISTRESS NOTED. RESPIRATIONS EVEN AND UNLABORED. PT HAS NO COMPLAINTS AT THIS TIME. CALL LIGHT AND OTHER PERSONAL ITEMS WITH IN REACH. RECIEVED PHONE CALL FROM [facility] INFECTION CONTROL THAT COVID TEST WAS NEGATIVE. PT WILL BE MOVED 2135. WILL CONTINUE TO MONITOR
[2020-01-18 19:52] LABS: CKMB 1.7 U/L (0.0-3.6); CREATINE KINASE 100 UL (21-232); TROPONIN-I 0.027 ng/mL (0.000-0.060)
[2020-01-18 20:00] VITALS: BP 114/81
--- NOTE | 2020-01-18 20:15 | NUR ---
PT TRANSFER TO ROOM 2136 VIA WHEELCHAIR AND HOSPITAL STAFF. PT HAS ALL PERSONAL ITEMS. PT TOLERATED TRANSFER WELL. CALL LIGHT AND OTHER PERSONAL ITEMS ARE WITH IN REACH. PT REFUSES SCDS, AND DOES NOT WANT THE SIDERAILS UP WILL CONTINUE TO MONITOR
[2020-01-19] VITALS: BP 112/69
--- NOTE | 2020-01-19 03:44 | NUR ---
I have reviewed this patient and I concur with the Shift Assessment completed by the Licensed Practical Nurse today this shift.
[2020-01-19 04:00] VITALS: BP 115/79
--- NOTE | 2020-01-19 05:33 | NUR ---
PT REFUSES LASIX. HAS NO COMPLANTS AT THIS TIME. CALL LIGHT WITH IN REACH. WILL CONTINUE TO MONITOR
[2020-01-19 06:17] LABS: BILIRUBIN NEGATIVE (NEGATIVE); GLUCOSE NEGATIVE (NEGATIVE); KETONE NEGATIVE (NEGATIVE); NITRITE NEGATIVE (NEGATIVE); SPECIFIC GRAVITY 1.015 (1.005-1.020); UROBILINOGEN NORMAL (NORMAL)
[2020-01-19 06:18] LABS: BACTERIA FEW /hpf (NEGATIVE); RED CELLS - URINE >50 /hpf (0-5); WHITE CELLS - URINE OCC /hpf (NEGATIVE)
[2020-01-19 08:04] VITALS: BP 127/54; BP 130/56
[2020-01-19 09:36] LABS: BASOPHILS 0.1 % (0-2); EOSINOPHILS 1.2 % (0-7); HEMATOCRIT 45.4 % (42.0-54.0); HEMOGLOBIN 13.9 g/dL (13.5-17.5); IMMATURE GRANULOCYTES 0.1 % (0-5); LYMPHOCYTES 17.7 % (15-50); MCH 26.2 pg (26.0-34.0); MCHC 30.6 g/dL (31.0-37.0); MCV 85.7 fL (80.0-100.0); MEAN PLATELET VOLUME 11.1 fL (7.4-10.4); MONOCYTES 8.3 % (2-11); NEUTROPHILS 72.6 % (40-80); PLATELET COUNT 147 10x3/uL (130-400); RDW 15.7 % (11.5-14.5); WBC 7.7 10x3/uL (4.8-10.8)
[2020-01-19 09:53] LABS: ALBUMIN 3.1 g/dL (3.4-5.0); BILIRUBIN - TOTAL 1.54 mg/dL (0.2-1.3); CALCIUM 8.9 mg/dL (8.5-10.1); CARBON DIOXIDE 26.4 mmol/L (21.0-32.0); CREATININE - SERUM 1.3 mg/dL (0.6-1.3); POTASSIUM - SERUM 3.4 mmol/L (3.5-5.1)
[2020-01-19 12:49] VITALS: BP 131/90
[2020-01-19] MEDS ORDERED: ELIQUIS5 MG PO (12:50)
--- NOTE | 2020-01-19 15:27 | MORECARE ---
CASE MANAGEMENT DISCHARGE SUMMARY PATIENT: CAROLINA CANELA UNIT: [id number] ADM DATE: 01/18/20 AGE: 84 : 35 SEX: M [place] [facility] [place] AUTHOR: BRENDA PEMBERTON PHYSICIAN: REFERRING PHYSICIAN: DAWIT DIGGS MD DATE OF SERVICE: 01/19/20 Discharge Plan Patient Name: CAROLINA CANELA [facility] : 1935 Planned Disposition: Home Anticipated Discharge Date: Discharge Date: Expected LOS: Initial Reviewer: [email or web address] Initial Review Date: 01/18/2020 Generated: 01/19/20 4:27 pm External Providers External Provider: OTHER-OTHER Next Contact Date: Service Request Date: Service Type: Resolution: Reviewer: Comments: Patient Name: CAROLINA CANELA Page [phone] at 1527 All edits/amendments must be made on the electronic document DICTATION DATE: 01/19/20 152 BELTING INSPECTOR: JOSÉ MANUEL 01/19/20 1527 RPT#: [id number] DC DATE: STATUS: ADM IN [facility] [address] [place] [address] END OF REPORT
--- NOTE | 2020-01-19 15:44 | MORECARE ---
CASE MANAGEMENT DISCHARGE SUMMARY PATIENT: CAROLINA CANELA UNIT: [id number] ADM DATE: 01/18/20 AGE: 84 : 35 SEX: M ROOM/BED: D.5312 AUTHOR: NIECY,DOC PHYSICIAN: REFERRING PHYSICIAN: DAWIT DGIGS MD DATE OF SERVICE: 01/19/20 Discharge Plan Patient Name: CAROLINA CANELA Facility: [facility]:[place] : 1935 Planned Disposition: Home Anticipated Discharge Date: Discharge Date: Expected LOS: Initial Reviewer: [email or web address] Initial Review Date: 01/18/2020 Generated: 01/19/20 4:43 pm Comments DCP- Discharge Planning Updated by [email or web address]: Jeannie Daniel on 01/19/20 2:[address] Patient Name: CAROLINA CANELA Admission Status: ER Accout number: [id number] Admission Date: 01-18-2020 : 1935 Admission Diagnosis:OTHER PULMONARY EMBOLISM WITHOUT ACUTE COR PULMONALE Attending: DAWIT DIGGS Current LOS: 1 Anticipated DC Date: Planned Disposition: Home Primary Insurance: MEDICARE A & B Discharge Planning Comments: CM met with patient to complete initial dc planning assessment. CM educated patient on the CM role and verbal consent given by patient to complete assessment. CM verified patient's address, phone number, and emergency contact phone numbers. Patient lives at home with his . At discharge patient plans to return home and feels this is a safe discharge. CM discussed availability of home health, rehab services, and medical equipment. Patient denied known discharge needs at this time. States he is ready to go, but he needs assistance with affording Eliquis. Cm provided coupon for 30 supply. [facility] at [phone], and they will not supply medication that they did not prescribe. Called Dr canas and spoke with Mr Miner at [phone] they stated that CM can fax progress notes to [phone] attention Team 1 they would attempt to assist pt in managing medication. Transportation provider at discharge will be Demario Levi ( pt has already called for ride ). DC IMM delivered, explained, signed by the patient, and placed in his chart. Signed form also left with patient. Thermostat Mechanic: Jeannie Daniel MSN,RN,CM Coverage Notice Reviewer: [email or web address] - Jeannie Daniel Notice Issued Date-Time: 01/19/2020 14:15 Notice Type: IM Discharge Notice Notice Delivered To: Patient Relationship to Patient: Can Reconditioner Name: Delivery Method: HAND - Hand Delivered Susy Days: Prior Verbal Notification: Recipient Understood Notice: Yes Recipient Signature: Yes Med Rec Note Co-signed by Attending: Coverage Notice Comment: DC IMM delivered, explained, signed by the patient, and placed in his chart. Signed form also left with patient. Last DP export: 01/19/20 2:27 p Patient Name: CAROLINA CANELA Page [phone] at 1544 All edits/amendments must be made on the electronic document DICTATION DATE: 01/19/201542 CARD WRITER HAND: JOSÉ MANUEL 01/19/20 1543 RPT#: [id number] DC DATE: STATUS: ADM IN [facility] [address] [place] [address] END OF REPORT
== END 2020-01-19 16:02 | disposition home or self-care (01) | DRG 175 ==
LOC: D.ER 00:08 → D.M2 01:54 → D.SDCHOLD 01-19 14:33 → D.M2 01-19 15:35
PROVIDERS: Family Medicine; ADMIT Internal Medicine Nephrology; ATTEND Internal Medicine Nephrology
DX: I26.99 Other pulmonary embolism without acute cor pulmonale (principal); I50.21 Acute systolic (congestive) heart failure; F17.203 Nicotine dependence unspecified, with withdrawal; I25.10 Atherosclerotic heart disease of native coronary artery without angina pectoris; D75.1 Secondary polycythemia; K21.9 Gastro-esophageal reflux disease without esophagitis; I11.0 Hypertensive heart disease with heart failure; Z86.73 Personal history of transient ischemic attack (TIA), and cerebral infarction without residual deficits

== ENCOUNTER 2020-04-02 08:43 | Inpatient (IN) | payer MEDICARE, OTHER ==
[~2020-04-02] VITALS: Ht 177.8 cm; Wt 90.0 kg
[~2020-04-02 08:43] MED LIST changes: +ELIQUIS5 MG PO; +LASIX40 MG PO
[2020-04-02 09:16] LABS: BASOPHILS 0.3 % (0-2); EOSINOPHILS 2.9 % (0-7); HEMOGLOBIN 12.9 g/dL (13.5-17.5); IMMATURE GRANULOCYTES 0.2 % (0-5); LYMPHOCYTES 22.8 % (15-50); MCH 26.3 pg (26.0-34.0); MCV 87.6 fL (80.0-100.0); MONOCYTES 6.3 % (2-11); NEUTROPHILS 67.5 % (40-80); PLATELET COUNT 129 10x3/uL (130-400); RBC 4.91 10x6/uL (4.20-6.10); RDW 17.1 % (11.5-14.5); WBC 5.9 10x3/uL (4.8-10.8)
[2020-04-02 09:25] LABS: APTT 28.8 SECONDS (22.8-39.4); INR 1.17 (0.85-1.17); PROTIME 14.8 SECONDS (11.6-15.0)
[2020-04-02 09:26] LABS: CALC OSMOLALITY 286 mosm/kg (275-300); CALCIUM 9.1 mg/dL (8.5-10.1); CARBON DIOXIDE 27.6 mmol/L (21.0-32.0); CHLORIDE - SERUM 109 mmol/L (98-107); CREATININE - SERUM 1.2 mg/dL (0.6-1.3); GLUCOSE 117 mg/dL (74-106); POTASSIUM - SERUM 4.2 mmol/L (3.5-5.1); SODIUM 142 mmol/L (136-145); UREA NITROGEN 20 mg/dL (7-18); eGFR NON AFRICAN AMERICAN 61 mL/min (90-120)
[2020-04-02 09:40] VITALS: BP 160/94
[2020-04-02 09:43] LABS: ALBUMIN 3.5 g/dL (3.4-5.0); ALKALINE PHOSPHATASE 101 U/L (30-120); ALT (SGPT) 16 U/L (10-68); BILIRUBIN - TOTAL 1.28 mg/dL (0.2-1.3); CKMB 1.6 U/L (0.0-3.6); CREATINE KINASE 53 UL (21-232); PRO BNP 4966 pg/mL (0-450); PROTEIN - SERUM 6.9 g/dL (6.4-8.2); TROPONIN-I 0.018 ng/mL (0.000-0.060)
[2020-04-02 11:19] VITALS: BP 121/94
[2020-04-02 13:00] VITALS: BP 120/88
[2020-04-02 16:00] VITALS: BP 185/102
[2020-04-02 19:53] VITALS: BMI 28.4
[2020-04-02 20:00] VITALS: BP 175/90
--- NOTE | 2020-04-02 22:57 | NUR ---
I have reviewed this patient and I concur with the Shift Assessment completed by the Licensed Practical Nurse today this shift.
[2020-04-03 05:06] LABS: BASOPHILS 0.5 % (0-2); EOSINOPHILS 2.9 % (0-7); HEMATOCRIT 40.9 % (42.0-54.0); HEMOGLOBIN 12.4 g/dL (13.5-17.5); IMMATURE GRANULOCYTES 0.2 % (0-5); MCH 26.2 pg (26.0-34.0); MCHC 30.3 g/dL (31.0-37.0); MCV 86.3 fL (80.0-100.0); MEAN PLATELET VOLUME 11.3 fL (7.4-10.4); MONOCYTES 10.6 % (2-11); NEUTROPHILS 59.8 % (40-80); PLATELET COUNT 152 10x3/uL (130-400); RBC 4.74 10x6/uL (4.20-6.10); RDW 16.9 % (11.5-14.5); WBC 6.2 10x3/uL (4.8-10.8)
[2020-04-03 05:29] LABS: ALBUMIN 3.5 g/dL (3.4-5.0); ANION GAP 8.4 mmol/L (8-16); BILIRUBIN - TOTAL 1.91 mg/dL (0.2-1.3); CALCIUM 9.4 mg/dL (8.5-10.1); CARBON DIOXIDE 28.4 mmol/L (21.0-32.0); CREATININE - SERUM 1.2 mg/dL (0.6-1.3); POTASSIUM - SERUM 3.8 mmol/L (3.5-5.1); PROTEIN - SERUM 6.7 g/dL (6.4-8.2)
--- NOTE | 2020-04-03 07:53 | NUR ---
LYING IN BED,WITHOUT DISTRESS.AWAKE WITH CALL LIGHT IN REACH
--- NOTE | 2020-04-03 08:00 | NUR ---
PT SITTING ON SIDE OF BED ASKING FOR BREAKFAST, PT BP STILL HIGH, ADMINISTERED SCHEDULED MEDS AND ADVISED PT BREAKFAST WILL BE HERE SHORTLY. NO OTHER NEEDS AT THIS TIME. CONTINUE WITH PLAN OF CARE
[2020-04-03 09:12] VITALS: Ht 177.8 cm; Wt 90.0 kg
[2020-04-03 09:51] VITALS: BP 160/101
[2020-04-03 13:32] VITALS: BP 161/102
[2020-04-03 16:45] VITALS: BP 153/78
--- NOTE | 2020-04-03 19:45 | NUR ---
PT SITTING UP IN BED WITHOUT DISTRESS, AOX4. STATES HE REFUSES TO TAKE LASIX TONIGHT. TOLD PT WHY IT IS IMPORTANT HE TAKE IT, PT AGAIN REFUSED MEDICATION. STATES HE HAS NOT SLEPT IN A FEW DAYS AND DOES NOT WANT TO BE UP ALL NIGHT VOIDING.
[2020-04-03 20:00] VITALS: BP 202/93
[2020-04-04 04:00] VITALS: BP 163/79
--- NOTE | 2020-04-04 07:34 | NUR ---
PT LYING IN BED ON RT SIDE ASLEEP, EVEN RISE AND FALL OF CHEST, NO S/SX OF DISTRESS, EASILY AWAKENED FOR ASSESSMENT. NO NEEDS VOICED, CL IN REACH CONTINUE WITH PLAN OF CARE
[2020-04-04 09:12] VITALS: BP 103/85
[2020-04-04 13:21] VITALS: BP 161/111
[2020-04-04 13:28] LABS: BASOPHILS 0.1 % (0-2); EOSINOPHILS 2.7 % (0-7); HEMATOCRIT 44.8 % (42.0-54.0); HEMOGLOBIN 13.6 g/dL (13.5-17.5); IMMATURE GRANULOCYTES 0.1 % (0-5); MCH 26.1 pg (26.0-34.0); MCHC 30.4 g/dL (31.0-37.0); MEAN PLATELET VOLUME 10.5 fL (7.4-10.4); MONOCYTES 7.5 % (2-11); NEUTROPHILS 63.6 % (40-80); PLATELET COUNT 154 10x3/uL (130-400); RBC 5.21 10x6/uL (4.20-6.10); RDW 16.9 % (11.5-14.5)
[2020-04-04 13:44] LABS: ALBUMIN 3.4 g/dL (3.4-5.0); ANION GAP 16.2 mmol/L (8-16); BILIRUBIN - TOTAL 2.09 mg/dL (0.2-1.3); CALCIUM 8.5 mg/dL (8.5-10.1); CARBON DIOXIDE 22.1 mmol/L (21.0-32.0); CREATININE - SERUM 1.2 mg/dL (0.6-1.3); POTASSIUM - SERUM 4.3 mmol/L (3.5-5.1); PROTEIN - SERUM 7.1 g/dL (6.4-8.2)
[2020-04-04] MEDS ORDERED: FLOMAX0.4 MG PO (14:20)
[2020-04-04] MEDS ORDERED: XARELTO15 MG PO (14:20)
[2020-04-04] MEDS ORDERED: XARELTO20 MG PO (14:21)
--- NOTE | 2020-04-04 14:53 | MORECARE ---
CASE MANAGEMENT DISCHARGE SUMMARY PATIENT: CAROLINA CANELA N UNIT: [id number] ADM DATE: 04/02/20 AGE: 84 : 35 SEX: M ROOM/BED: D.2222 AUTHOR: BRENDA PEMBERTON PHYSICIAN: REFERRING PHYSICIAN: COLLEEN WEINSTEIN MD DATE OF SERVICE: 04/04/20 Discharge Plan Patient Name: CAROLINA CANELA Facility: [facility]:[place] : 1935 Planned Disposition: Anticipated Discharge Date: Discharge Date: Expected LOS: Initial Reviewer: [email or web address] Initial Review Date: 04/04/2020 Generated: 04/04/20 3:53 pm DCPIA - Discharge Planning Initial Assessment Updated by LES: Norma Daniel on 04/04/20 2:51 pm * Is the patient Alert and Oriented? Yes * PCP JAQUAN * [facility]acy [facility] * Preadmission Environment Home with Family * ADLs Independent * Other Equipment CANE * Community resources currently utilized None * Additional services required to return to the preadmission environment? Yes * Can the patient safely return to the preadmission environment? Yes * Has this patient been hospitalized within the prior 30 days at any hospital? No Coverage Notice Reviewer: [id number] Zara Daniel Notice Issued Date-Time: 04/04/2020 14:52 Notice Type: IM Discharge Notice Notice Delivered To: Relationship to Patient: Wild Animal Caretaker Name: Delivery Method: - Susy Days: Prior Verbal Notification: Recipient Understood Notice: Recipient Signature: Med Rec Note Co-signed by Attending: Coverage Notice Comment: Reviewer: [id number] Daniel Notice Issued Date-Time: 04/04/2020 14:52 Notice Type: Patient Choice Letter Notice Delivered To: Relationship to Patient: Wild Animal Caretaker Name: Delivery Method: HAND - Hand Delivered Susy Days: Prior Verbal Notification: Recipient Understood Notice: Yes Recipient Signature: Yes Med Rec Note Co-signed by Attending: Coverage Notice Comment: YRN MCKENZIE Patient Name: CAROLINA CANELA Page [id number] at 1453 All edits/amendments must be made on the electronic document DICTATION DATE: 04/04/20 1457 OIL RIGGER: JOSÉ MANUEL 04/04/20 7865 RPT#: [id number] DC DATE: STATUS: ADM IN [facility] [address] [place] [address] END OF REPORT
--- NOTE | 2020-04-04 15:03 | MORECARE ---
CASE MANAGEMENT DISCHARGE SUMMARY PATIENT: CAROLINA CANELA UNIT: [id number] ADM DATE: 04/02/20 AGE: 84 : 35 SEX: M ROOM/BED: D.2222 AUTHOR: NIECY,DOC PHYSICIAN: REFERRING PHYSICIAN: COLLEEN WEINSTEIN MD DATE OF SERVICE: 04/04/20 Discharge Plan Patient Name: CAROLINA CANELA Facility: [facility]:[place] : 1935 Planned Disposition: Anticipated Discharge Date: Discharge Date: Expected LOS: Initial Reviewer: [id number] Initial Review Date: 04/04/2020 Generated: 04/04/20 4:02 pm Comments DCP- Discharge Planning Updated by [email or web address]: Norma Daniel on 04/04/20 1:[address] Patient Name: CAROLINA CANELA Admission Status: ER Accout number: [id number] Admission Date: 04-02-2020 : 1935 Admission Diagnosis: Attending: CRUZITO Current LOS: 2 Anticipated DC Date: Planned Disposition: Primary Insurance: MEDICARE A & B Discharge Planning Comments: CM met with patient at bedside after explaining CM role and obtaining verbal consent. CM discussed availability / needs of home health, REHAB and medical equipment. DOES NOT WANT HH OR REHAB. WILL NEED OXYGEN, FAILED WALK TEST. ANGELIC SIGNED FOR [facility]. REFERRAL FAXED. WAITING CALL BACK. Pulper Operator: Norma Daniel DCPIA - Discharge Planning Initial Assessment Updated by [id number]: Norma Daniel on 04/04/20 2:51 pm * Is the patient Alert and Oriented? Yes * PCP JAQUAN * [facility] * Preadmission Environment Home with Family * ADLs Independent * Other Equipment CANE * Community resources currently utilized None * Additional services required to return to the preadmission environment? Yes * Can the patient safely return to the preadmission environment? Yes * Has this patient been hospitalized within the prior 30 days at any hospital? No Coverage Notice Reviewer: [id number] - Norma Daniel Notice Issued Date-Time: 04/04/2020 14:52 Notice Type: IM Discharge Notice Notice Delivered To: Relationship to Patient: Retread Technician Name: Delivery Method: - Susy Days: Prior Verbal Notification: Recipient Understood Notice: Recipient Signature: Med Rec Note Co-signed by Attending: Coverage Notice Comment: Reviewer: [id number] Zara Daniel Notice Issued Date-Time: 04/04/2020 14:52 Notice Type: Patient Choice Letter Notice Delivered To: Relationship to Patient: Retread Technician Name: Delivery Method: HAND - Hand Delivered Susy Days: Prior Verbal Notification: Recipient Understood Notice: Yes Recipient Signature: Yes Med Rec Note Co-signed by Attending: Coverage Notice Comment: YRN Rico DP export: 04/04/20 1:53 pm Patient Name: CAROLINA CANELA Page [id number] at 1503 All edits/amendments must be made on the electronic document DICTATION DATE: 04/04/20 150 MISSILE FACILITIES REPAIRER: JOSÉ MANUEL 04/04/20 1502 RPT#: [id number] DC DATE: STATUS: ADM IN [facility] [address] [place] [address] END OF REPORT
--- NOTE | 2020-04-04 15:12 | MORECARE ---
CASE MANAGEMENT DISCHARGE SUMMARY PATIENT: CAROLINA CANELA UNIT: [id number] ADM DATE: 04/02/20 AGE: 84 : 35 SEX: M ROOM/BED: D.2222 AUTHOR: NIECY,DOC PHYSICIAN: REFERRING PHYSICIAN: COLLEEN WEINSTEIN MD DATE OF SERVICE: 04/04/20 Discharge Plan Patient Name: CAROLINA CANELA Facility: [facility]:[place] : 1935 Planned Disposition: Anticipated Discharge Date: Discharge Date: Expected LOS: Initial Reviewer: [email or web address] Initial Review Date: 04/04/2020 Generated: 04/04/20 4:12 pm Comments DCP- Discharge Planning Updated by [id number]: Norma Daniel on 04/04/20 1:[address] Patient Name: CAROLINA CANELA Admission Status: ER Accout number: [id number] Admission Date: 04-02-2020 : 1935 Admission Diagnosis: Attending: CRUZITO Current LOS: 2 Anticipated DC Date: Planned Disposition: Primary Insurance: MEDICARE A & B Discharge Planning Comments: CM met with patient at bedside after explaining CM role and obtaining verbal consent. CM discussed availability / needs of home health, REHAB and medical equipment. DOES NOT WANT HH OR REHAB. WILL NEED OXYGEN, FAILED WALK TEST. ANGELIC SIGNED FOR [facility]. REFERRAL FAXED. WAITING CALL BACK. Sales Order Specialist: Norma Daniel DCPIA - Discharge Planning Initial Assessment Updated by [email or web address]: Norma Daniel on 04/04/20 2:51 pm * Is the patient Alert and Oriented? Yes * PCP JAQUAN * [facility] * Preadmission Environment Home with Family * ADLs Independent * Other Equipment CANE * Community resources currently utilized None * Additional services required to return to the preadmission environment? Yes * Can the patient safely return to the preadmission environment? Yes * Has this patient been hospitalized within the prior 30 days at any hospital? No External Providers External Provider: [facility] Next Contact Date: Service Request Date: Service Type: Resolution: Reviewer: Comments: Coverage Notice Reviewer: [id number] - Norma Daniel Notice Issued Date-Time: 04/04/2020 14:52 Notice Type: IM Discharge Notice Notice Delivered To: Relationship to Patient: Horticulture Teacher Name: Delivery Method: - Susy Days: Prior Verbal Notification: Recipient Understood Notice: Recipient Signature: Med Rec Note Co-signed by Attending: Coverage Notice Comment: Reviewer: [id number] Zara Daniel Notice Issued Date-Time: 04/04/2020 14:52 Notice Type: Patient Choice Letter Notice Delivered To: Relationship to Patient: Horticulture Teacher Name: Delivery Method: HAND - Hand Delivered Susy Days: Prior Verbal Notification: Recipient Understood Notice: Yes Recipient Signature: Yes Med Rec Note Co-signed by Attending: Coverage Notice Comment: YRN Rico DP export: 04/04/20 2:03 pm Patient Name: CAROLINA CANELA Page [phone] at 1512 All edits/amendments must be made on the electronic document DICTATION DATE: 04/04/201511 BOMB TECHNICIAN: JOSÉ MANUEL 04/04/201511 RPT#: [id number] DC DATE: STATUS: ADM IN [facility] [address] [place] [address] END OF REPORT
--- NOTE | 2020-04-05 09:13 | MORECARE ---
CASE MANAGEMENT DISCHARGE SUMMARY PATIENT: CAROLINA CANELA UNIT: [id number] ADM DATE: 04/02/20 AGE: 84 : 35 SEX: M ROOM/BED: D.2222 AUTHOR: NIECY,DOC PHYSICIAN: REFERRING PHYSICIAN: COLLEEN WEINSTEIN MD DATE OF SERVICE: 04/05/20 Discharge Plan Patient Name: CAROLINA CANELA Facility: [facility]:[place] : 1935 Planned Disposition: Anticipated Discharge Date: Discharge Date: 04/04/2020 Expected LOS: Initial Reviewer: [id number] Initial Review Date: 04/04/2020 Generated: 04/05/20 10:13 am Comments DCP- Discharge Planning Updated by [id number]: Norma Daniel on 04/04/20 1:[address] Patient Name: CAROLINA CANELA Admission Status: ER Accout number: [id number] Admission Date: 04-02-2020 : 1935 Admission Diagnosis: Attending: CRUZITO Current LOS: 2 Anticipated DC Date: Planned Disposition: Primary Insurance: MEDICARE A & B Discharge Planning Comments: CM met with patient at bedside after explaining CM role and obtaining verbal consent. CM discussed availability / needs of home health, REHAB and medical equipment. DOES NOT WANT HH OR REHAB. WILL NEED OXYGEN, FAILED WALK TEST. ANGELIC SIGNED FOR [facility]. REFERRAL FAXED. WAITING CALL BACK. Coding Compliance Specialist: Norma Daniel DCPIA - Discharge Planning Initial Assessment Updated by [email or web address]: Norma Daniel on 04/04/20 2:51 pm * Is the patient Alert and Oriented? Yes * PCP JAQUAN * [facility] * Preadmission Environment Home with Family * ADLs Independent * Other Equipment CANE * Community resources currently utilized None * Additional services required to return to the preadmission environment? Yes * Can the patient safely return to the preadmission environment? Yes * Has this patient been hospitalized within the prior 30 days at any hospital? No Coverage Notice Reviewer: [id number] - Norma Daniel Notice Issued Date-Time: 04/04/2020 14:52 Notice Type: IM Discharge Notice Notice Delivered To: Relationship to Patient: Import Coordination And Production Head Name: Delivery Method: - Susy Days: Prior Verbal Notification: Recipient Understood Notice: Recipient Signature: Med Rec Note Co-signed by Attending: Coverage Notice Comment: Reviewer: [id number] Zara Daniel Notice Issued Date-Time: 04/04/2020 14:52 Notice Type: Patient Choice Letter Notice Delivered To: Relationship to Patient: Import Coordination And Production Head Name: Delivery Method: HAND - Hand Delivered Susy Days: Prior Verbal Notification: Recipient Understood Notice: Yes Recipient Signature: Yes Med Rec Note Co-signed by Attending: Coverage Notice Comment: YRN Rico DP export: 04/04/20 2:12 pm Patient Name: CAROLINA CANELA Page [phone] at 0913 All edits/amendments must be made on the electronic document DICTATION DATE: 04/05/20912 CLINICAL DIETICIAN: JOSÉ MANUEL 04/05/20912 RPT#: [id number] DC DATE:04/04/20 STATUS: DIS IN [facility] [address] [place] [address] END OF REPORT
--- NOTE | 2020-04-05 11:30 | EC ---
PATIENT:CAROLINA CANELA DATE OF SERVICE: 04/02/20 SEX: M MEDICAL RECORD: [id number] DATE OF : [birth year] LOCATION:[facility] AGE OF PATIENT: 84 ADMISSION DATE: 04/02/20 REFERRING PHYSICIAN: INTERPRETING PHYSICIAN: COLLEEN RITTER MD ECHOCARDIOGRAM REPORT ECHO CHARGES 5 ECHO LIMITED Date: 04/03/20 CLINICAL DIAGNOSIS: CAD, PE ECHOCARDIOGRAPHIC MEASUREMENTS (adult normal given) AC root (d.<3.7cm) 0 cm LV Septum d (<1.2 cm> 0 cm Valve Excursion 0 cm LV Septum (systole) 0 cm Left Atria (s.<4.0cm> 0 cm LVPW d(<1.2cm) 0 cm RV (d.<2.3cm) 0 cm LVPW (sytole) 0 cm LV diastole(<5.6CM) 0 cm MV E-F(>70mm/sec) 0 cm LV systole 0 cm LVOT Diameter 0 cm MV exc.(>10mm) 0 cm Est.ejection fraction (50-75%) % DOPPLER: LVIT cm/sec A 0 cm/sec E 0 cm/sec LA 0 cm/sec RVSP 31.8 mmHg LVOT cm/sec AOP1/2T m/s Asc. Ao 00 cm/sec RVOT 0 cm/sec RA 0 cm/sec PA 0 cm/sec AV Gradient Peak 0000 mmHg AV Mean 0 mmHg AV Area 0 cm MV Gradient Peak 0 mmHg MV Mean 00 mmHg MV Area cm COMMENTS: Laborer Syrup Machine: Fatoumata CHAVIRAFORD PABLITO Cable Stretcher And Tester: 3 Dr. Fox TAPE# PACS Pericardial Effusion N DATE OF SERVICE: 04/04/2020 Limited study includes 2D, color flow. Grossly, LVH appears present. LV internal dimension is normal. LV function appears to be lower limits of normal, mildly reduced at 45% to 50% without obvious focal wall motion abnormality. Left atrium grossly appears normal with trivial MR. Right-sided chambers are grossly normal. Trivial TR. TRANSINT:[id number] Voice Confirmation ID: [id number] DOCUMENT ID: [id number] ECHOCARDIOGRAM REPORT [id number] CAROLINA CANELA COLLEEN RITTER MD at 1133 CC: [id number] DICTATION DATE: 04/04/20 08 DERRICK BARGE OPERATOR: 08/06/20 1147 DIS IN 04/04/20 [facility] [address] [place] [address]
== END 2020-04-04 17:17 | disposition home or self-care (01) | DRG 175 ==
LOC: D.ER 08:43 → D.MS 12:33
PROVIDERS: Family Medicine; Internal Medicine Hematology & Oncology; ADMIT Family Medicine; ATTEND Family Medicine
DX: I26.99 Other pulmonary embolism without acute cor pulmonale (principal); I50.23 Acute on chronic systolic (congestive) heart failure; J98.11 Atelectasis; I82.412 Acute embolism and thrombosis of left femoral vein; I11.0 Hypertensive heart disease with heart failure; R91.8 Other nonspecific abnormal finding of lung field; G25.81 Restless legs syndrome; D75.1 Secondary polycythemia; H26.9 Unspecified cataract; K21.9 Gastro-esophageal reflux disease without esophagitis; K44.9 Diaphragmatic hernia without obstruction or gangrene; I25.10 Atherosclerotic heart disease of native coronary artery without angina pectoris; Z95.0 Presence of cardiac pacemaker